=== PATIENT | male | born 1980 | race Caucasian/White ===

== ENCOUNTER → 2017-06-09 | Outpatient (CLI) | payer OTHER ==
--- NOTE | 2017-06-09 10:38 | DIAGNOSTIC IMAGING REPORT ---
(CHEST) THORAX WITHOUT CT DOSE: 304.54 mGycm HISTORY: Pulmonary nodule F/U TO KNOWN PULMONARY NODULE TECHNIQUE: Multiaxial CT images of the chest were performed without contrast. A dose lowering technique was utilized adhering to the principles of ALARA. COMPARISON: CT abdomen dated 04/22/2016 FINDINGS: Small 5 mm basilar pleural nodules at the posterior costophrenic angles are noted and appear unchanged compared to the prior study. A 3 mm nodules also noted in the left base laterally. All findings were present on the prior study and are stable. Lungs otherwise appear clear. There is no infiltrate or additional pulmonary nodularity. Mediastinal and hilar regions show no significant adenopathy. Limited evaluation the upper abdomen is unremarkable. IMPRESSION: 1. Stable basilar micronodularity. 2. No change from the prior exam as discussed above. 3. Although the findings are of extremely low suspicion statistically, a repeat CT study in 1-2 years is suggested The above report was generated using voice recognition software. It may contain grammatical, syntax or spelling errors. Electronically signed by: Asad Villafuerte M.D. 06/09/2017 10:36 AM Dictated Date/Time: 06/09/2017 10:32 AM
== END | disposition home or self-care (01) ==
LOC: C.CTS 10:13
DX: R91.8 Other nonspecific abnormal finding of lung field (principal)

== ENCOUNTER 2025-04-11 18:19 | Inpatient (IN) ==
[2025-04-11 18:42] LABS: Hematocrit (blood only) 33.3 % (42.0-52.0); Hemoglobin 9.9 g/dl (14.0-18.0); Immature Granulocytes # (auto) 0.02 K/uL (0.01-0.20); Immature Granulocytes % (auto) 0.2 %; Mean Corpuscular Hemoglobin 24.6 pg (25.0-34.0); Mean Corpuscular Volume 82.8 fL (80.0-100.0); Platelet Count 341 K/uL (130-400); RDW Standard Deviation 46.6 fL (36.4-46.3); Red Blood Count 4.02 M/uL (4.70-6.10); White Blood Count 8.45 K/ul (4.8-10.8)
[2025-04-11] MEDS: SODIUM CHLORIDE 0.9% 1,000 ML IV ONE (18:46)
--- NOTE | 2025-04-11 18:53 | Emergency Department Note ---
Impression & Plan SVT (supraventricular tachycardia), Anemia, Hypomagnesemia, Abnormal CT of the abdomen, Pneumonia ED Provider Note NAME: REJI WAY AGE: 45 SEX: M : 1980 ARRIVES VIA: Ambulance INFORMANT: Patient, ED PROVIDER(S): Alfred Mercer DO CHIEF COMPLAINT: Tachycardia HPI: The patient is a 45-year-old male who presented to the emergency department for an evaluation of tachycardia. The patient is currently at [facility]. He is scheduled to be transferred tomorrow for inpatient alcohol rehabilitation. The patient states he has a history of SVT. He noticed throughout the day he was having problems with palpitations. He was broke once with carotid maneuver and then with adenosine. The patient had ongoing symptoms today and was sent to the emergency department for further evaluation. He denies having any chest pain. He denies having any shortness of breath. He states has been compliant with his outpatient medications which does include an anticoagulant. He denies having any leg pain or increasing calf pain. ROS: See above HPI for pertinent positives & negatives. A total of 10 systems reviewed and were otherwise negative. PAST MEDICAL HISTORY: See Below PAST SURGICAL HISTORY: See Below FAMILY HISTORY: See Below SOCIAL HISTORY: See Below HOME MEDICATIONS: See Below ALLERGIES: See Below VITALS: See Below PHYSICAL EXAMINATION: GENERAL: Patient is awake alert in no acute distress patient is resting comfortably and showing no signs of anxiety EYES: The conjunctivae are clear. The pupils are round and reactive. EARS, NOSE, MOUTH AND THROAT: The nose is without any evidence of any deformity. NECK: The neck is nontender and supple. RESPIRATORY: Normal respiratory effort is noted there is no evidence of wheezing rhonchi or rales CARDIOVASCULAR: Tachycardic and regular heart sounds were noted to auscultation. GASTROINTESTINAL: The abdomen is soft. Abdomen is nontender. MUSCULOSKELETAL/EXTREMITIES: There is no evidence of gross deformity full range of motion is noted in the hips and shoulders. SKIN: There is no obvious evidence of any rash. There are no petechiae, pallor or cyanosis noted. NEUROLOGIC: Patient is awake alert and oriented x3 strength is symmetric patellar reflexes are 2+ bilaterally MEDICAL DECISION MAKING: The patient is a 45-year-old male who presented to the emergency department from inpatient rehab for an evaluation of tachycardia. The patient has a history of cardiomyopathy as well as SVT. The patient also has a history of chronic alcohol use. The patient was recently in our facility and treated for pneumonia as well as superficial thrombophlebitis. He is at upper extremity DVT. The patient was found to be in SVT at the rehab. He was treated prior to arrival but when he broke he still had palpitations. The patient was in sinus tachycardia when he arrived here. I discussed patient's laboratory and radiographic studies with him. He did have an abnormal chest x-ray. Given his history of DVT as well as persistent tachycardia further imaging was obtained in the way of CT angiography of the chest as well as CT of the abdomen and pelvis. He was found to have signs of infiltrate which does appear similar to previous but also masses on his kidneys. I did discuss the patient's condition with the nursing staff at [facility]. At this time they do feel the patient would be a better candidate for inpatient management at our facility rather than coming back to inpatient rehab. I will defer antibiotic as well as blood culture to the admitting team as the pneumonia is more radiographic and not as much clinical as the patient does not have a productive cough or a fever. He was also found to be anemic. Certainly he will require further inpatient workup. Triage Nursing notes reviewed. Prior medical records reviewed Vital Signs: reviewed and remarkable for tachycardia. Differential diagnosis: Premature contractions, electrolyte abnormality, cardiac dysrhythmia, thyroid dysfunction, pulmonary embolism, infection, gastrointestinal, as well as other pathologies. ER treatment provided: See below Diagnostics interpreted by me: ECG: EKG was obtained in the emergency department. My interpretation is sinus tachycardia at 118 bpm. There is no ectopy. Nonspecific ST abnormalities were noted. This was compared to a tracing from April 06, 2025. No changes were noted. Cardiac Monitoring: An order was placed for continuous cardiac monitoring. The monitor shows a rate of 100 bpm with sinus tachycardia. Laboratory studies: As stated above and show below. Imaging studies: See below. Radiographic imaging was reviewed by myself Consultation(s): [facility]. Past Med/Surg History Problem List (Updated 04/11/25 @ 23:03 by Alfred Mercer DO) Pneumonia (Acute) Abnormal CT of the abdomen (Acute) Hypomagnesemia (Acute) Anemia (Acute) SVT (supraventricular tachycardia) (Acute) Tracheostomy in place Anxiety Superficial thrombophlebitis of both upper extremities provoked by vascular c Arm DVT (deep venous thromboembolism), acute Acute non-occlusive Right IJ provoked from catheter 03/19/25 Fever Acute HFrEF (heart failure with reduced ejection fraction) Ischemic hepatitis ETOH abuse Cardiomyopathy Acute hypoxic respiratory failure (Acute) Thrombocytopenia Elevated LFTs Pulmonary edema Required emergent intubation Respiratory failure Crohn's disease involving terminal ileum Encounter for pre-operative examination Hematochezia Change in bowel habits Chronic diarrhea Medical History Blood in stool reason for upcoming colonoscopy (bright red blood) Surgical History History of myringotomy BMT History of tonsillectomy History of colonoscopy Family History Other No family history of adverse response to anesthesia Social History Smoking Status: Never smoker Second Hand Exposure: No; Do You Dip or Chew Tobacco: No; Hx Alcohol Use: Yes Hx Substance Use: No Preferred Language: Nigerien Communication Ability: Impaired Vp [employer] Required: No Beliefs That Will Affect Care: None Current Living Situation: Spouse Feels Safe at Home: Yes Assistive Devices: None Allergies Allergies Allergy/AdvReac Type Severity Reaction Status Date / Time gluten Allergy Severe Anaphylaxis Verified 04/11/25 21:48 peanut Allergy Severe Anaphylaxis Verified 04/11/25 21:48 peanut oil Allergy Severe ANAPHYLAXIS Verified 04/11/25 21:48 lidocaine [From Xylocaine] Allergy Unknown Unknown Verified 04/11/25 21:48 Home Meds Home Medications Medication Instructions Recorded Confirmed acetaminophen 325 mg tablet 650 mg PO Q4H PRN Pain (Scale 04/11/25 04/11/25 (Tylenol) Score 1-3) acetaminophen 500 mg tablet 500 mg PO Q4H PRN TEMP =>100.5 04/11/25 04/11/25 bisacodyl 10 mg rectal suppository 10 mg WY DAILY PRN Constipation 04/11/25 04/11/25 docusate sodium 100 mg capsule 100 mg PO Q12H PRN Constipation 04/11/25 04/11/25 gabapentin 800 mg tablet 800 mg PO TID 04/11/25 04/11/25 lisinopril 2.5 mg tablet 2.5 mg PO DAILY 04/11/25 04/11/25 metoprolol succinate 50 mg 50 mg PO DAILY 04/11/25 04/11/25 tablet,extended release 24 hr ondansetron 4 mg disintegrating 4 mg PO Q6H PRN NAUSEA/VOMITING 04/11/25 04/11/25 tablet polyethylene glycol 3350 17 17 g PO QDL PRN Constipation 04/11/25 04/11/25 gram/dose oral powder (Miralax) sennosides 8.6 mg tablet (Senokot) 8.6 mg PO QDL PRN Constipation 04/11/25 04/11/25 sodium phosphates 19 gram-7 133 ml WY DAILY PRN Constipation 04/11/25 04/11/25 gram/118 mL enema (Fleet Enema) thiamine HCl (vitamin B1) 100 mg 100 mg PO DAILY 04/11/25 04/11/25 tablet Previous Rx's Medication Instructions Recorded apixaban 5 mg tablet (Eliquis) 5 mg PO BID 30 days #60 tabs 04/07/25 folic acid 1 mg tablet 1 mg PO DAILY #30 tabs 04/07/25 melatonin 3 mg tablet 3 mg PO HS #30 tabs 04/07/25 multivitamin with folic acid 400 1 tab PO QAM #30 tabs 04/07/25 mcg tablet (Daily-Meseret (with folic acid)) olanzapine 10 mg tablet 10 mg PO HS #30 tabs 04/07/25 olanzapine 5 mg tablet 5 mg PO QAM #30 tabs 04/07/25 spironolactone 25 mg tablet 25 mg PO QAM 30 days #30 tabs 04/07/25 Results & Data (ED) Vital Signs Vital Signs - 24 hr 04/11/25 18:30 04/11/25 18:30 04/11/25 19:05 Temperature 36.8 C Temperature Source Oral Pulse Rate 114 H 111 H Pulse Rate from SpO2 Sensor Respiratory Rate 16 Blood Pressure 123/84 Blood Pressure Mean 97 Pulse Oximetry 100 100 Oxygen Delivery Method Room Air Room Air Sepsis Recent Fever Within 48 Hours No Sepsis New/Unexplained Change in Mental Status N/A Sepsis Action Taken by Nursing No Action Required 04/11/25 19:30 04/11/25 20:09 04/11/25 20:30 Temperature Temperature Source Pulse Rate 106 H 101 H 102 H Pulse Rate from SpO2 Sensor 106 H 100 H 101 H Respiratory Rate 15 22 20 Blood Pressure 119/86 117/80 119/76 Blood Pressure Mean 97 92 90 Pulse Oximetry 100 98 96 Oxygen Delivery Method Room Air Room Air Room Air Sepsis Recent Fever Within 48 Hours Sepsis New/Unexplained Change in Mental Status Sepsis Action Taken by Nursing 04/11/25 20:30 04/11/25 20:51 04/11/25 21:00 Temperature Temperature Source Pulse Rate 99 H Pulse Rate from SpO2 Sensor 100 H Respiratory Rate 17 Blood Pressure 119/76 115/80 Blood Pressure Mean 85 92 Pulse Oximetry 98 Oxygen Delivery Method Room Air Sepsis Recent Fever Within 48 Hours Sepsis New/Unexplained Change in Mental Status Sepsis Action Taken by Nursing 04/11/25 21:03 04/11/25 21:42 04/11/25 22:00 Temperature Temperature Source Pulse Rate 99 H 105 H 99 H Pulse Rate from SpO2 Sensor 199 H 98 H Respiratory Rate 14 22 23 Blood Pressure 105/74 120/87 Blood Pressure Mean 84 98 Pulse Oximetry 95 98 Oxygen Delivery Method Room Air Room Air Sepsis Recent Fever Within 48 Hours Sepsis New/Unexplained Change in Mental Status Sepsis Action Taken by Nursing 04/11/25 22:24 04/11/25 22:53 04/11/25 23:00 Temperature Temperature Source Pulse Rate 101 H 102 H 100 H Pulse Rate from SpO2 Sensor 102 H 100 H Respiratory Rate 24 24 Blood Pressure 127/101 H 121/80 Blood Pressure Mean 109 93 Pulse Oximetry 99 97 Oxygen Delivery Method Room Air Room Air Sepsis Recent Fever Within 48 Hours Sepsis New/Unexplained Change in Mental Status Sepsis Action Taken by Nursing 04/11/25 23:00 Temperature Temperature Source Pulse Rate Pulse Rate from SpO2 Sensor Respiratory Rate Blood Pressure 121/80 Blood Pressure Mean 93 Pulse Oximetry Oxygen Delivery Method Sepsis Recent Fever Within 48 Hours Sepsis New/Unexplained Change in Mental Status Sepsis Action Taken by Prison Medications Current Medication List: was personally reviewed by me Laboratory Data Attestation: I reviewed the patient's lab results. 04/11/25 18:28 04/11/25 18:28 Lab Results 04/11/25 Range/Units 18:28 WBC 8.45 (4.8-10.8) K/ul RBC 4.02 L (4.70-6.10) M/uL Hgb 9.9 L (14.0-18.0) g/dl Hct 33.3 L (42.0-52.0) % MCV 82.8 (80.0-100.0) fL MCH 24.6 L (25.0-34.0) pg MCHC 29.7 L (32.0-36.0) g/dL RDW Std Deviation 46.6 H (36.4-46.3) fL RDW Coeff of Iris 15.5 H (11.5-14.5) % Plt Count 341 (130-400) K/uL MPV 9.1 L (9.4-12.4) fL Immature Gran % (Auto) 0.2 % Neut % (Auto) 75.5 % Lymph % (Auto) 15.6 % Norton % (Auto) 7.1 % Eos % (Auto) 0.5 % Baso % (Auto) 1.1 % Neut # (Auto) 6.38 (1.40-6.50) K/uL Lymph # (Auto) 1.32 (1.20-3.40) K/uL Norton # (Auto) 0.60 H (0.11-0.59) K/uL Eos # (Auto) 0.04 (0.00-0.50) K/uL Baso # (Auto) 0.09 (0.00-0.20) K/uL Immature Gran # (Auto) 0.02 (0.01-0.20) K/uL PT 13.4 H (9.0-12.0) Seconds INR 1.3 H (0.9-1.1) APTT 24 (21-31) Seconds PTT Ratio 0.9 D-Dimer 4240 H* (0-500) ug/L FEU Sodium 132 L (136-145) mmol/L Potassium 4.5 (3.5-5.1) mmol/L Chloride 100 (98-107) mmol/L Carbon Dioxide 24 (21-32) mmol/L Anion Gap 8 (3-11) BUN 14 (6-23) mg/dl Creatinine 0.78 (0.6-1.4) mg/dl Est Cr Clr Drug Dosing Not Reportable eGFR 111.38 BUN/Creatinine Ratio 17.9 (10-20) Glucose 122 H (70-99(Fasting)) mg/dl Calcium 8.8 (8.6-10.3) mg/dl Magnesium 1.5 L (1.7-2.4) mg/dl Total Bilirubin 0.8 (0.2-1.0) mg/dl AST 52 H (13-39) U/L ALT 51 (7-52) U/L Alkaline Phosphatase 116 H (34-104) U/L Troponin I High Sens 13.2 (0-20) pg/ml Total Protein 7.4 (6.0-8.3) gm/dl Albumin 3.1 L (3.4-5.0) gm/dl Globulin 4.3 H (2.5-4.0) gm/dl Albumin/Globulin Ratio 0.7 L (0.9-2) TSH 0.327 (0.300-4.500) uIu/ml Administered Medications Discontinued Medications Sodium Chloride (Nss) 1,000 mls @ 999 mls/hr IV .Q1H1M ONE Stop: 04/11/25 19:41 Last Infusion: 04/11/25 20:00 Dose: Infused Documented By: Admin: 04/11/25 18:46 Dose: 999 mls/hr Documented By: PROSPER Magnesium Sulfate/Dextrose (Magnesium Sulfate / D5w) 1 gm in 100 mls @ 100 mls/hr IV NOW STA Stop: 04/11/25 20:52 Last Infusion: 04/11/25 21:09 Dose: Infused Documented By: Admin: 04/11/25 20:01 Dose: 100 mls/hr Documented By: ISRRAEL Ioversol (Optiray 320 125ml) 115 ml IV ONCE ONE Stop: 04/11/25 21:23 Last Admin: 04/11/25 21:22 Dose: 115 ml Documented By: ALEXUS Ketorolac Tromethamine (Ketorolac Tromethamine 15 Mg/Ml Vial) 10 mg IV NOW ONE Stop: 04/11/25 20:51 Last Admin: 04/11/25 23:02 Dose: Not Given Documented By: PONCHO Lorazepam (Lorazepam 1 Mg/1 Ml Syr Ed Inj Use) 0.5 mg IV ONE STA Stop: 04/11/25 21:09 Last Admin: 04/11/25 21:14 Dose: 0.5 mg Documented By: EZEQUIEL Co-signed By: PONCHO Magnesium Oxide (Magnesium Oxide 400 Mg Tab) 400 mg PO ONE ONE Stop: 04/11/25 19:55 Last Admin: 04/11/25 20:01 Dose: 400 mg Documented By: Imaging Data Attestation: I personally reviewed and interpreted this imaging study as follows: My Impression: 1 view chest x-ray was obtained in the emergency department. My interpretation is increased consolidation noted in the right lung field. There is no free air, final report below. Radiologist's Impression: Chest X-Ray 04/11/25 18:27 EXAM: X-ray chest one-view portable CLINICAL HISTORY: Dysrhythmia, pain left-sided chest PRIORS: X-ray 04/05/2025, CT 03/23/2025 TECHNIQUE: Frontal view chest FINDINGS: Overall improvement in the appearance of the lung parenchyma is noted, especially when compared to CT scan. A moderate left pleural effusion is noted, enlarged when compared to 04/05/2025 chest radiograph. Persistent or increased patchy opacifications noted at the left lung base. Pleural appearing mass noted in the right mid hemithorax, lateral aspect measuring 2.7 x 2.7 cm, also identified on CT scan. So smooth borders and is approximately round to oval in shape. Cardiomegaly, unchanged. Trachea midline. IMPRESSION: Moderate left pleural effusion, progressed in the interval. Increased opacity in the left lower lobe which could suggest atelectasis or pneumonia. Overall improvement in the appearance of the lungs when compared to chest CT from 03/23/2025 with persistent right lung or pleural-based mass, present laterally measuring up to 2.7 cm. Follow-up chest CT could be considered if appropriate. Cardiomegaly ACT 112: Positive. There are findings on this examination that require communication between the performing entity and the patient following Patient Test Result Information Act ([place] ACT 112) guidelines. Electronically signed by Claudine Hammond 04-11-2025 7:39 PM Abdomen/Pelvis CT 04/11/25 20:49 Exam(s): CT ABDOMEN + PELVIS With Contrast IV Amt: 115 ml optiray 320 EXAM: CT Abdomen and Pelvis With Intravenous Contrast CLINICAL HISTORY: Reason for exam: right sided pain. TECHNIQUE: Axial computed tomography images of the abdomen and pelvis with intravenous contrast. CTDI is 26.12 mGy and DLP is 1381.73 mGy-cm. Automated exposure control was utilized for the study. A dose lowering technique was utilized adhering to the principles of ALARA. CONTRAST: Patient received 115 ml optiray 320 of IV contrast COMPARISON: No relevant prior studies available. FINDINGS: Lung bases: Reported separately. ABDOMEN: Liver: Unremarkable. No mass. Gallbladder and bile ducts: Unremarkable. No calcified stones. No ductal dilation. Pancreas: Unremarkable. No mass. No ductal dilation. Spleen: Unremarkable. No splenomegaly. Adrenals: Unremarkable. No mass. Kidneys and ureters: No hydronephrosis. Indeterminate 11 mm exophytic right renal lesion measuring 36 Hounsfield units (axial 143). Complex cystic 3.1 cm mass left kidney midpole with central soft tissue density component (axial 138). Stomach and bowel: Sigmoid diverticulosis without diverticulitis. No bowel obstruction. PELVIS: Appendix: Normal appendix. Bladder: Unremarkable. No mass. Reproductive: Unremarkable as visualized. ABDOMEN and PELVIS: Intraperitoneal space: Trace free pelvic fluid. No free air. Bones/joints: No acute fracture. No dislocation. Soft tissues: Unremarkable. Vasculature: Unremarkable. No abdominal aortic aneurysm. Lymph nodes: Unremarkable. No enlarged lymph nodes. IMPRESSION: 1. Trace free pelvic fluid. 2. Indeterminate bilateral renal lesions, largest in the left kidney measuring 3.1 cm. Further imaging workup with renal ultrasound correlation and possibly renal mass protocol CT or MRI. Electronically signed by: Fiorella Soto M.D. 04/11/25 22:48 PM Chest CTA 04/11/25 20:49 Exam(s): CTA CHEST IV Amt: 115 ml optiray 320 EXAM: CT Angiography Chest With Intravenous Contrast CLINICAL HISTORY: Reason for exam: PE. TECHNIQUE: Axial computed tomographic angiography images of the chest with intravenous contrast. CTDI is 20 mGy and DLP is 13 80 mGy-cm. Automated exposure control was utilized for the study. A dose lowering technique was utilized adhering to the principles of ALARA. MIP reconstructed images were created and reviewed. COMPARISON: 03/23/2025 FINDINGS: Pulmonary arteries: No evidence of acute pulmonary embolism. Aorta: No thoracic aortic aneurysm. Lungs: Patchy bilateral irregular ground-glass opacities as well as small peripheral consolidations. Pleural space: Small partially loculated left pleural effusion and trace right pleural effusion. No pneumothorax. Heart: Cardiomegaly. No pericardial effusion or coronary artery atherosclerosis. Bones/joints: No acute fracture. No dislocation. Soft tissues: Unremarkable. Lymph nodes: No lymphadenopathy by size criteria. IMPRESSION: 1. No evidence of acute pulmonary embolism. 2. Patchy bilateral irregular ground-glass opacities as well as small peripheral consolidations. Appearance is concerning for viral/atypical infection. Degree of parenchymal lung abnormality is improved from prior. 3. Cardiomegaly. 4. Small partially loculated left pleural effusion and trace right pleural effusion. Electronically signed by: Fiorella Soto M.D. 04/11/25 22:47 PM Discharge Plan Visit Data Chief Complaint: Tachycardia Stated Complaint: SVT ED Provider: Alfred Mercer Discharge Problem: SVT (supraventricular tachycardia), Anemia, Hypomagnesemia, Abnormal CT of the abdomen, Pneumonia Patient Disposition: Being Evaluated by Hospitalist Condition: Fair Forms Stand Alone Forms: [facility] Prescriptions Prescriptions: No Action ondansetron 4 mg tablet,disintegrating 4 mg PO Q6H PRN (Reason: NAUSEA/VOMITING) docusate sodium 100 mg capsule 100 mg PO Q12H PRN (Reason: Constipation) bisacodyl 10 mg suppository 10 mg WY DAILY PRN (Reason: Constipation) Fleet Enema 19-7 gram/118 mL enema 133 ml WY DAILY PRN (Reason: Constipation) sennosides [Senokot] 8.6 mg tablet 8.6 mg PO QDL PRN (Reason: Constipation) polyethylene glycol 3350 [Miralax] 17 gram/dose powder 17 g PO QDL PRN (Reason: Constipation) acetaminophen 500 mg tablet 500 mg PO Q4H PRN (Reason: TEMP =>100.5) metoprolol succinate 50 mg tablet extended release 24 hr 50 mg PO DAILY thiamine HCl (vitamin B1) 100 mg tablet 100 mg PO DAILY lisinopril 2.5 mg tablet 2.5 mg PO DAILY olanzapine 5 mg Tablet 5 mg PO QAM Qty: 30 0RF olanzapine 10 mg Tablet 10 mg PO HS Qty: 30 0RF melatonin 3 mg Tablet 3 mg PO HS Qty: 30 0RF spironolactone 25 mg Tablet 25 mg PO QAM 30 Days Qty: 30 0RF folic acid 1 mg Tablet 1 mg PO DAILY Qty: 30 0RF multivitamin with folic acid [Daily-Meseret (with folic acid)] 400 mcg Tablet 1 tab PO QAM Qty: 30 0RF Eliquis 5 mg Tablet 5 mg PO BID 30 Days Qty: 60 0RF acetaminophen [Tylenol] 325 mg Tablet 650 mg PO Q4H PRN (Reason: Pain (Scale Score 1-3)) gabapentin 800 mg Tablet 800 mg PO TID Referrals Referrals: Yemi Garcia Jr, DO [Primary Care Provider] -
[2025-04-11 18:56] LABS: Alanine Aminotransferase 51 U/L (7-52); Albumin Globulin Ratio 0.7 (0.9-2); Albumin Level 3.1 gm/dl (3.4-5.0); Alkaline Phosphatase 116 U/L (34-104); Anion Gap 8 (3-11); Bilirubin,Total 0.8 mg/dl (0.2-1.0); Blood Urea Nitrogen 14 mg/dl (6-23); Calcium 8.8 mg/dl (8.6-10.3); Carbon Dioxide 24 mmol/L (21-32); Chloride 100 mmol/L (98-107); Globulin 4.3 gm/dl (2.5-4.0); Glucose 122 mg/dl (70-99(Fasting)); Magnesium 1.5 mg/dl (1.7-2.4); Potassium 4.5 mmol/L (3.5-5.1); Sodium 132 mmol/L (136-145); Total Protein 7.4 gm/dl (6.0-8.3)
[2025-04-11 19:12] LABS: Thyroid Stimulating Hormone 0.327 uIu/ml (0.300-4.500)
[2025-04-11 19:14] LABS: INR 1.3 (0.9-1.1); Partial Thromboplastin Time 24 Seconds (21-31); Prothrombin Time 13.4 Seconds (9.0-12.0)
--- NOTE | 2025-04-11 19:40 | XRay Report ---
EXAM: X-ray chest one-view portable CLINICAL HISTORY: Dysrhythmia, pain left-sided chest PRIORS: X-ray 04/05/2025, CT 03/23/2025 TECHNIQUE: Frontal view chest FINDINGS: Overall improvement in the appearance of the lung parenchyma is noted, especially when compared to CT scan. A moderate left pleural effusion is noted, enlarged when compared to 04/05/2025 chest radiograph. Persistent or increased patchy opacifications noted at the left lung base. Pleural appearing mass noted in the right mid hemithorax, lateral aspect measuring 2.7 x 2.7 cm, also identified on CT scan. So smooth borders and is approximately round to oval in shape. Cardiomegaly, unchanged. Trachea midline. IMPRESSION: Moderate left pleural effusion, progressed in the interval. Increased opacity in the left lower lobe which could suggest atelectasis or pneumonia. Overall improvement in the appearance of the lungs when compared to chest CT from 03/23/2025 with persistent right lung or pleural-based mass, present laterally measuring up to 2.7 cm. Follow-up chest CT could be considered if appropriate. Cardiomegaly ACT 112: Positive. There are findings on this examination that require communication between the performing entity and the patient following Patient Test Result Information Act ([place] ACT 112) guidelines. Electronically signed by Claudine Hammond 04-11-2025 7:39 PM
[2025-04-11] MEDS: MAGNESIUM SULFATE / D5W 1 GM/100 ML BAG IV STA (20:01)
[2025-04-11] MEDS: MAGNESIUM OXIDE 400 MG TAB PO ONE (20:01)
[2025-04-11] MEDS: LORazepam 1 MG/1 ML SYR ED Inj Use IV STA (21:14)
[2025-04-11] MEDS: OPTIRAY 320 125ml IV ONE (21:22)
--- NOTE | 2025-04-11 22:48 | CT Scan Report ---
Exam(s): CTA CHEST IV Amt: 115 ml optiray 320 EXAM: CT Angiography Chest With Intravenous Contrast CLINICAL HISTORY: Reason for exam: PE. TECHNIQUE: Axial computed tomographic angiography images of the chest with intravenous contrast. CTDI is 20 mGy and DLP is 13 80 mGy-cm. Automated exposure control was utilized for the study. A dose lowering technique was utilized adhering to the principles of ALARA. MIP reconstructed images were created and reviewed. COMPARISON: 03/23/2025 FINDINGS: Pulmonary arteries: No evidence of acute pulmonary embolism. Aorta: No thoracic aortic aneurysm. Lungs: Patchy bilateral irregular ground-glass opacities as well as small peripheral consolidations. Pleural space: Small partially loculated left pleural effusion and trace right pleural effusion. No pneumothorax. Heart: Cardiomegaly. No pericardial effusion or coronary artery atherosclerosis. Bones/joints: No acute fracture. No dislocation. Soft tissues: Unremarkable. Lymph nodes: No lymphadenopathy by size criteria. IMPRESSION: 1. No evidence of acute pulmonary embolism. 2. Patchy bilateral irregular ground-glass opacities as well as small peripheral consolidations. Appearance is concerning for viral/atypical infection. Degree of parenchymal lung abnormality is improved from prior. 3. Cardiomegaly. 4. Small partially loculated left pleural effusion and trace right pleural effusion. Electronically signed by: Fiorella Soto M.D. 04/11/25 22:47 PM
--- NOTE | 2025-04-11 22:49 | CT Scan Report ---
Exam(s): CT ABDOMEN + PELVIS With Contrast IV Amt: 115 ml optiray 320 EXAM: CT Abdomen and Pelvis With Intravenous Contrast CLINICAL HISTORY: Reason for exam: right sided pain. TECHNIQUE: Axial computed tomography images of the abdomen and pelvis with intravenous contrast. CTDI is 26.12 mGy and DLP is 1381.73 mGy-cm. Automated exposure control was utilized for the study. A dose lowering technique was utilized adhering to the principles of ALARA. CONTRAST: Patient received 115 ml optiray 320 of IV contrast COMPARISON: No relevant prior studies available. FINDINGS: Lung bases: Reported separately. ABDOMEN: Liver: Unremarkable. No mass. Gallbladder and bile ducts: Unremarkable. No calcified stones. No ductal dilation. Pancreas: Unremarkable. No mass. No ductal dilation. Spleen: Unremarkable. No splenomegaly. Adrenals: Unremarkable. No mass. Kidneys and ureters: No hydronephrosis. Indeterminate 11 mm exophytic right renal lesion measuring 36 Hounsfield units (axial 143). Complex cystic 3.1 cm mass left kidney midpole with central soft tissue density component (axial 138). Stomach and bowel: Sigmoid diverticulosis without diverticulitis. No bowel obstruction. PELVIS: Appendix: Normal appendix. Bladder: Unremarkable. No mass. Reproductive: Unremarkable as visualized. ABDOMEN and PELVIS: Intraperitoneal space: Trace free pelvic fluid. No free air. Bones/joints: No acute fracture. No dislocation. Soft tissues: Unremarkable. Vasculature: Unremarkable. No abdominal aortic aneurysm. Lymph nodes: Unremarkable. No enlarged lymph nodes. IMPRESSION: 1. Trace free pelvic fluid. 2. Indeterminate bilateral renal lesions, largest in the left kidney measuring 3.1 cm. Further imaging workup with renal ultrasound correlation and possibly renal mass protocol CT or MRI. Electronically signed by: Fiorella Soto M.D. 04/11/25 22:48 PM
[2025-04-11] MEDS: KETOROLAC TROMETHAMINE 15 MG/ML VIAL IV ONE (23:02)
--- NOTE | 2025-04-11 23:38 | History & Physical Report ---
Date of Service April 11, 2025 Assessment & Plan (1) SVT (supraventricular tachycardia): (2) Loculated pleural effusion: (3) Hypomagnesemia: (4) Hyponatremia: (5) Bilateral renal masses: Plan 45-year-old male PMHx SVT, thrombophlebitis, prior DVT of arm, HFrEF, ischemic hepatitis, cardiomyopathy, prior acute hypoxia respiratory failure requiring intubation, thrombocytopenia, Crohn's disease, and diarrhea presenting from [facility] for reports of SVT on the day of arrival. Pt was provided with Adenosine IV x 2 and converted to NSR. Evaluation reveals anemia, elevated Ddimer, and normal tropinin. Liver enzymes slightly elevated. Mag was low, replaced in ED. CXR with pleural effusion and ? atelectasis vs PNA. His CTA chest is negative for PE, does show patchy bilateral irregular opacities, ? infection, as well as pleural effusions. Admission for further evaluation. #Tachycardia/SVT Reports of SVT at HF visit then at [facility] the day of arrival, received adenosine x 2 now in sinus, carotid massage had initially failed. W/ h/o HFrEF, on GDMT. Asx at time of admission. ? related to hypomagnesemia, ? physiological stress from pleural effusion. Will admit + monitor on tele for recurrence of SVT. - Trop 13.2 - EKG initially SVT @ 158 bpm on arrival - monitor on tele - Attempt carotid massage with onset of SVT -- notify provider with onset of such - Maximize electrolytes -- replace Mag - Echo 04/07/2025 with EF 20-25% - Cardiology consulted - appreciate input + recs #L loculated pleural effusion/Bilateral pleural effusions No hypoxic, and without symptoms at present. With prior bilateral thoracentesis (no infection, transudative to borderline exudative, cultures all negative). CXR 04/01 and 04/05 with R > L pleural effusions but improved. No F/C, cough, congestion, or SOB. - CBC without leukocytosis/leukopenia, pending procal + BNP - CBC am - CXR mild L pleural effusion (progressed), increased opacity LLL (atelectasis vs PNA, increased L side since 04/05/2025 CXR), cardiomegaly - Chest CTA no PE, patchy bilat irregular ground glass opacities (viral vs atypical infection), cardiomegaly, small partially loculated L pleural effusion, trace R pleural effusion - Echo 04/07/2025 EF 20-25%, LV mod dilated, LVSP severely reduced, severe global hypokinesis of LV - HOLD Eliquis, ? procedure - Deferred abx at time of admissions - No cough, SOB, or F/C. WBC WNL. Pending procal - Pulm consulted -- appreciate input + recs #Hypomagnesemia/Hyponatremia Prior history of hypomagnesemia, with chronic diarrhea. Received 1L NSS, 1g mag sulfate in ED. - Na 132 (corrected 133); Mg 1.5 - Defer further fluids at time of admission - Mag sulfate 3g IV x 1 -- will likely need oral supplementation as a daily medication moving forward - Trend BMP + Mg am #Bilateral renal lesions As identified on CTAP, also had been documented 03/15/2025 (CTAP) and 06/09/2018 (renal US). - Cr 0.78, BUN 14 - trend BMP as appropriate - CTAP indeterminate bilateral renal lesions (L kidney largest @ 3.1 cm) - Follow up as appropriate #Anemia- Near baseline, no active bleeding reported. Continue folic acid - CBC am #Elevated D-dimer- D-dimer 4240; Chest CTA without PE; Eliquis - HOLD at time of admission, ? pulm procedure #Constipation- Bisacodyl prn, docusate prn, MiraLAX prn, sennosides prn; Reports of chronic diarrhea, will hold off on ordering all prn medications and trial just MiraLAX at this time in attempts to decrease chronic diarrhea - continue MiraLAX prn #Etoh abuse- Last drink 03/11; Complicated now with cardiomyopathy, HF. Folic acid, thiamine - continue #HTN/HFrEF- Lisinopril, metoprolol, spironolactone - continue #Psych- Olanzapine, Gabapentin - continue Dispo: Admit, PCU VTE Prophylaxis: On Eliquis - HOLD at time of admission, pending pulmonology inp ut of loculated pleural effusion This document was dictated utilizing Ecell[employer] Carson. Please excuse any grammatical errors that may be secondary to use of this software. Admission and Anticipated Discharge Date Admission Date: 04/01/2025 History of Present Illness Chief Complaint: Tachycardia Primary Care Provider: Yemi Garcia Jr, DO 45-year-old male PMHx SVT, thrombophlebitis, prior DVT of arm, HFrEF, ischemic hepatitis, cardiomyopathy, prior acute hypoxia respiratory failure requiring intubation, thrombocytopenia, Crohn's disease, and diarrhea presenting from [facility] for reports of SVT on the day of arrival. Pt was provided with Adenosine 160mg x 2 and converted to NSR. Patient states that he is "very tired" and states that he was just told that his heart rate was very fast the day of arrival. He complains of some left-sided pain that is "old on my left side" and described as a dull sensation. He states that earlier he felt that his heart was beating funny, but now he is without any symptoms. He denies chest pain, SOB, palpitations, or dizziness. Otherwise without acute symptoms, to states that he is very tired and ready to sleep because it is past his bedtime. He denies any cough, fever or chills, shortness of breath, or URI symptoms. He has no other complaints at present. Requesting Powerade. ED evaluation reveals CBC without leukocytosis, H/H 9.9/33.3; PT/INR 13.4/1.3, Ddimer 4240; CMP Na 132, glucose 122, AST 52, alk phos 116, albumin 3.1, globulin 4.3, ratio 0.7; Mag 1.5; troponin 13.2; TSH 0.327; CXR moderate L pleural effusion (progressed), increased opacity of LLL (atelectasis vs PNA), persistent RL mass, cardiomegaly; CTAP trace free pelvic fluid, indeterminant bilateral renal lesions (largest L @ 3.1 cm); CTA chest no PE, kiersten bilateral irregular ground glass opacities with peripheral consolidations (viral/atypical infection?), cardiomegaly, small partially loculated L pleural effusion, trace R pleural effusion; EKG SVT, LAFB, LVH at 158 bpm.; Provided with 1L NSS, Mag sulfate 1 g IV, mag oxide 400 mg po, and lorazepam 0.5mg IV in ED. Please see Dr. Mendieta's attestation for adjustments/additions to treatment plan. Allergies Allergy/AdvReac Type Severity Reaction Status Date / Time gluten Allergy Severe Anaphylaxis Verified 04/11/25 21:48 peanut Allergy Severe Anaphylaxis Verified 04/11/25 21:48 peanut oil Allergy Severe ANAPHYLAXIS Verified 04/11/25 21:48 lidocaine [From Xylocaine] Allergy Unknown Unknown Verified 04/11/25 21:48 Home Medications Medication Instructions Recorded Confirmed Type apixaban 5 mg tablet (Eliquis) 5 mg PO BID 30 days #60 tabs 04/07/25 04/11/25 Rx folic acid 1 mg tablet 1 mg PO DAILY #30 tabs 04/07/25 04/11/25 Rx melatonin 3 mg tablet 3 mg PO HS #30 tabs 04/07/25 04/11/25 Rx multivitamin with folic acid 400 1 tab PO QAM #30 tabs 04/07/25 04/11/25 Rx mcg tablet (Daily-Meseret (with folic acid)) olanzapine 10 mg tablet 10 mg PO HS #30 tabs 04/07/25 04/11/25 Rx olanzapine 5 mg tablet 5 mg PO QAM #30 tabs 04/07/25 04/11/25 Rx spironolactone 25 mg tablet 25 mg PO QAM 30 days #30 tabs 04/07/25 04/11/25 Rx acetaminophen 325 mg tablet 650 mg PO Q4H PRN Pain (Scale 04/11/25 04/11/25 History (Tylenol) Score 1-3) acetaminophen 500 mg tablet 500 mg PO Q4H PRN TEMP =>100.5 04/11/25 04/11/25 History bisacodyl 10 mg rectal suppository 10 mg MI DAILY PRN Constipation 04/11/25 04/11/25 History docusate sodium 100 mg capsule 100 mg PO Q12H PRN Constipation 04/11/25 04/11/25 History gabapentin 800 mg tablet 800 mg PO TID 04/11/25 04/11/25 History lisinopril 2.5 mg tablet 2.5 mg PO DAILY 04/11/25 04/11/25 History metoprolol succinate 50 mg 50 mg PO DAILY 04/11/25 04/11/25 History tablet,extended release 24 hr ondansetron 4 mg disintegrating 4 mg PO Q6H PRN NAUSEA/VOMITING 04/11/25 04/11/25 History tablet polyethylene glycol 3350 17 17 g PO QDL PRN Constipation 04/11/25 04/11/25 History gram/dose oral powder (Miralax) sennosides 8.6 mg tablet (Senokot) 8.6 mg PO QDL PRN Constipation 04/11/25 04/11/25 History sodium phosphates 19 gram-7 133 ml MI DAILY PRN Constipation 04/11/25 04/11/25 History gram/118 mL enema (Fleet Enema) thiamine HCl (vitamin B1) 100 mg 100 mg PO DAILY 04/11/25 04/11/25 History tablet Past Med/Surg History Problem List (Updated 04/12/25 @ 00:56 by Jonah Rosen PA-C) Hyponatremia Bilateral renal masses Loculated pleural effusion Pneumonia (Acute) Abnormal CT of the abdomen (Acute) Hypomagnesemia (Acute) Anemia (Acute) SVT (supraventricular tachycardia) (Acute) Tracheostomy in place Anxiety Superficial thrombophlebitis of both upper extremities provoked by vascular c Arm DVT (deep venous thromboembolism), acute Acute non-occlusive Right IJ provoked from catheter 03/19/25 Fever Acute HFrEF (heart failure with reduced ejection fraction) Ischemic hepatitis ETOH abuse Cardiomyopathy Acute hypoxic respiratory failure (Acute) Thrombocytopenia Elevated LFTs Pulmonary edema Required emergent intubation Respiratory failure Crohn's disease involving terminal ileum Encounter for pre-operative examination Hematochezia Change in bowel habits Chronic diarrhea Medical History Blood in stool reason for upcoming colonoscopy (bright red blood) Surgical History History of myringotomy BMT History of tonsillectomy History of colonoscopy Family History Other No family history of adverse response to anesthesia Social History Smoking Status: Never smoker Second Hand Exposure: No; Do You Dip or Chew Tobacco: No; Hx Alcohol Use: Yes Hx Substance Use: No Preferred Language: Czech Communication Ability: Impaired Data Integration Analyst Required: No Beliefs That Will Affect Care: None Current Living Situation: Spouse Feels Safe at Home: Yes Assistive Devices: None Review of Systems Review of Systems: All systems reviewed & are unremarkable except as noted in Subjective Physical Exam Physical Exam: General: No acute distress, falling asleep during admitting exam "very tired" Skin: Warm and dry Head: Normocephalic, atraumatic Eyes: PERRL, conjunctivae clear, sclera non-icteric ENT: External ear and ear canal without swelling; nose atraumatic; good dentition, tongue normal appearance, pharynx normal Neck: Supple, no LAD Cardio: borderline tachycardic in high 90s, regular rhythm, no M/G/R, S1 and S2 normal Resp: Slightly decreased breath sounds; No respiratory distress, Lungs CTA in all lobes bilaterally, no wheezes, rales, or rhonchi Abdomen: Soft, symmetric, nontender; No masses or hepatosplenomegaly; Bowel sounds normoactive MSK: No deformities; pulses palpable and equal; no edema. Neuro: Awake, alert; Sensation intact bilaterally; CN grossly intact Psych: Appropriate mood and affect; good judgement and insight. Results & Data Results & Data Vital Signs (Past 12 Hours) Vital Signs Temp Pulse Resp BP Pulse Ox O2 Del Method 04/11/25 23:00 121/80 04/11/25 23:00 100 H 24 121/80 97 Room Air 04/11/25 22:53 102 H 04/11/25 22:24 101 H 24 127/101 H 99 Room Air 04/11/25 22:00 99 H 23 120/87 98 Room Air 04/11/25 21:42 105 H 22 105/74 95 Room Air 04/11/25 21:03 99 H 14 04/11/25 21:00 115/80 04/11/25 20:51 99 H 17 98 Room Air 04/11/25 20:30 119/76 04/11/25 20:30 102 H 20 119/76 96 Room Air 04/11/25 20:09 101 H 22 117/80 98 Room Air 04/11/25 19:30 106 H 15 119/86 100 Room Air 04/11/25 19:05 111 H 04/11/25 18:30 100 Room Air 04/11/25 18:30 36.8 C 114 H 16 123/84 100 Room Air Laboratory Results 04/11/25 18:28 WBC 8.45 RBC 4.02 L Hgb 9.9 L Hct 33.3 L MCV 82.8 MCH 24.6 L MCHC 29.7 L RDW Std Deviation 46.6 H RDW Coeff of Iris 15.5 H Plt Count 341 MPV 9.1 L Immature Gran % (Auto) 0.2 Neut % (Auto) 75.5 Lymph % (Auto) 15.6 [place] % (Auto) 7.1 Eos % (Auto) 0.5 Baso % (Auto) 1.1 Neut # (Auto) 6.38 Lymph # (Auto) 1.32 [place] # (Auto) 0.60 H Eos # (Auto) 0.04 Baso # (Auto) 0.09 Immature Gran # (Auto) 0.02 PT 13.4 H INR 1.3 H APTT 24 PTT Ratio 0.9 D-Dimer 4240 H* Sodium 132 L Potassium 4.5 Chloride 100 Carbon Dioxide 24 Anion Gap 8 BUN 14 Creatinine 0.78 Est Cr Clr Drug Dosing Not Reportable eGFR 111.38 BUN/Creatinine Ratio 17.9 Glucose 122 H Calcium 8.8 Magnesium 1.5 L Total Bilirubin 0.8 AST 52 H ALT 51 Alkaline Phosphatase 116 H Troponin I High Sens 13.2 Total Protein 7.4 Albumin 3.1 L Globulin 4.3 H Albumin/Globulin Ratio 0.7 L TSH 0.327 Diagnostic Findings Chest X-Ray 04/11/25 18:27 EXAM: X-ray chest one-view portable CLINICAL HISTORY: Dysrhythmia, pain left-sided chest PRIORS: X-ray 04/05/2025, CT 03/23/2025 TECHNIQUE: Frontal view chest FINDINGS: Overall improvement in the appearance of the lung parenchyma is noted, especially when compared to CT scan. A moderate left pleural effusion is noted, enlarged when compared to 04/05/2025 chest radiograph. Persistent or increased patchy opacifications noted at the left lung base. Pleural appearing mass noted in the right mid hemithorax, lateral aspect measuring 2.7 x 2.7 cm, also identified on CT scan. So smooth borders and is approximately round to oval in shape. Cardiomegaly, unchanged. Trachea midline. IMPRESSION: Moderate left pleural effusion, progressed in the interval. Increased opacity in the left lower lobe which could suggest atelectasis or pneumonia. Overall improvement in the appearance of the lungs when compared to chest CT from 03/23/2025 with persistent right lung or pleural-based mass, present laterally measuring up to 2.7 cm. Follow-up chest CT could be considered if appropriate. Cardiomegaly ACT 112: Positive. There are findings on this examination that require communication between the performing entity and the patient following Patient Test Result Information Act ([place] ACT 112) guidelines. Electronically signed by Claudine Hammond 04-11-2025 7:39 PM Abdomen/Pelvis CT 04/11/25 20:49 Exam(s): CT ABDOMEN + PELVIS With Contrast IV Amt: 115 ml optiray 320 EXAM: CT Abdomen and Pelvis With Intravenous Contrast CLINICAL HISTORY: Reason for exam: right sided pain. TECHNIQUE: Axial computed tomography images of the abdomen and pelvis with intravenous contrast. CTDI is 26.12 mGy and DLP is 1381.73 mGy-cm. Automated exposure control was utilized for the study. A dose lowering technique was utilized adhering to the principles of ALARA. CONTRAST: Patient received 115 ml optiray 320 of IV contrast COMPARISON: No relevant prior studies available. FINDINGS: Lung bases: Reported separately. ABDOMEN: Liver: Unremarkable. No mass. Gallbladder and bile ducts: Unremarkable. No calcified stones. No ductal dilation. Pancreas: Unremarkable. No mass. No ductal dilation. Spleen: Unremarkable. No splenomegaly. Adrenals: Unremarkable. No mass. Kidneys and ureters: No hydronephrosis. Indeterminate 11 mm exophytic right renal lesion measuring 36 Hounsfield units (axial 143). Complex cystic 3.1 cm mass left kidney midpole with central soft tissue density component (axial 138). Stomach and bowel: Sigmoid diverticulosis without diverticulitis. No bowel obstruction. PELVIS: Appendix: Normal appendix. Bladder: Unremarkable. No mass. Reproductive: Unremarkable as visualized. ABDOMEN and PELVIS: Intraperitoneal space: Trace free pelvic fluid. No free air. Bones/joints: No acute fracture. No dislocation. Soft tissues: Unremarkable. Vasculature: Unremarkable. No abdominal aortic aneurysm. Lymph nodes: Unremarkable. No enlarged lymph nodes. IMPRESSION: 1. Trace free pelvic fluid. 2. Indeterminate bilateral renal lesions, largest in the left kidney measuring 3.1 cm. Further imaging workup with renal ultrasound correlation and possibly renal mass protocol CT or MRI. Electronically signed by: Fiorella Soto M.D. 04/11/25 22:48 PM Chest CTA 04/11/25 20:49 Exam(s): CTA CHEST IV Amt: 115 ml optiray 320 EXAM: CT Angiography Chest With Intravenous Contrast CLINICAL HISTORY: Reason for exam: PE. TECHNIQUE: Axial computed tomographic angiography images of the chest with intravenous contrast. CTDI is 20 mGy and DLP is 13 80 mGy-cm. Automated exposure control was utilized for the study. A dose lowering technique was utilized adhering to the principles of ALARA. MIP reconstructed images were created and reviewed. COMPARISON: 03/23/2025 FINDINGS: Pulmonary arteries: No evidence of acute pulmonary embolism. Aorta: No thoracic aortic aneurysm. Lungs: Patchy bilateral irregular ground-glass opacities as well as small peripheral consolidations. Pleural space: Small partially loculated left pleural effusion and trace right pleural effusion. No pneumothorax. Heart: Cardiomegaly. No pericardial effusion or coronary artery atherosclerosis. Bones/joints: No acute fracture. No dislocation. Soft tissues: Unremarkable. Lymph nodes: No lymphadenopathy by size criteria. IMPRESSION: 1. No evidence of acute pulmonary embolism. 2. Patchy bilateral irregular ground-glass opacities as well as small peripheral consolidations. Appearance is concerning for viral/atypical infection. Degree of parenchymal lung abnormality is improved from prior. 3. Cardiomegaly. 4. Small partially loculated left pleural effusion and trace right pleural effusion. Electronically signed by: Fiorella Soto M.D. 04/11/25 22:47 PM Medications Administered 1L NSS Mag sulfate 1g IV Mag oxide 400mg po Lorazepam 0.5mg IV ECG Additional Comments: SVT, LAFB, LVH 158 bpm, QRS 86, QT/QTc 296/480, PRT */-51/71 Code Status & VTE Plan Code Status Full Supervising Physician Co-Signing Physician Notes Attending addendum: I have physically seen this patient, have supervised the DONA's activities, and agree with the H&P unless as otherwise noted. Assessment and Plan: The patient is a 45-year-old male with past medical history including SVT, thrombophlebitis, prior DVT of arm, HFrEF, ischemic hepatitis, alcoholic cardiomyopathy, prior acute hypoxic respiratory failure requiring intubation, thrombocytopenia, Crohn's disease, and chronic diarrhea. He presents to the emergency department from [facility] due to report of SVT that was relieved by adenosine IV x 2. SVT/hypertension/HFrEF- Patient was converted to normal sinus rhythm after receiving adenosine IV x [address] [facility]. Differential causes including but not limited to: Hypomagnesemia, alcoholic cardiomyopathy, persistent left lower lobe loculated pleural effusion, others. The patient will be admitted to telemetry for serial cardiac enzymes, serial EKG's, cardiac rhythm monitoring Most recent echocardiogram on 04/07/2025 with severely reduced left ventricular systolic dysfunction, left ventricle moderately dilated, severe global hypokinesis of the left ventricle. Ejection fraction 20 to 25%. Troponin 13.2 with follow-up pending Magnesium 1.5, which she will receive 2 g IV to target 2.0 Elevated D-dimer of 4240 with CTA chest negative for PE Continue metoprolol, lisinopril, spironolactone Consult cardiology Left lower lobe loculated pleural effusion/bilateral pleural effusions- Treated with 10 days of antibiotics at last admission CT in the ED this evening suggestive of viral/atypical process per radiology interpretation Will ask pulmonology for their assessment Hypomagnesemia- Magnesium 1.5 on admission Received 3 g IV replacement noted, recheck laboratories in a.m. Bilateral renal lesions- Renal ultrasound 06/09/2018 noted left renal cyst 2.[address] scan abdomen pelvis in 03/15/2025 notes left largest cyst 3.[address] abdomen pelvis today notes bilateral renal lesions, with largest on the left side 3.1 cm Overall appears stable Should be followed routinely Alcohol abuse- Had been at [facility], and then went from [facility] to [facility]. Patient was to be transferred back to [facility] tomorrow 04/12 for ongoing rehab Remaining orders and notations as noted PG Care Time/CCT Total # of Minutes Spent Total Time Spent with Patient: Total time spent is greater than 50% in coordination of care (as documented) at patient's floor/unit and/or counseling patient: Coding Level of Care Code 71312 INT INP/OBS CARE 3/75MIN Diagnoses SVT (supraventricular tachycardia) I47.10 Loculated pleural effusion J90 Hypomagnesemia E83.42 Hyponatremia E87.1 Bilateral renal masses N28.89
[2025-04-12] MEDS: APIXABAN 5 MG TABLET PO STA (00:19)
[2025-04-12] MEDS: GABAPENTIN 800 MG TAB PO STA (00:53)
[2025-04-12] MEDS: OLANZapine 10 MG TAB PO STA (00:53)
[2025-04-12] MEDS: MAGNESIUM SULFATE / D5W 1 GM/100 ML BAG IV SCH (01:34)
[2025-04-12] MEDS ORDERED: ONDANSETRON 4 MG OD TAB PO PRN (02:11)
[2025-04-12] MEDS ORDERED: ONDANSETRON INJ 2 MG/ML 2 ML VIAL IV PRN (02:11)
[2025-04-12] MEDS ORDERED: POLYETHYLENE (MIRALAX) 17 GM PACK PO PRN (02:11)
[2025-04-12 05:57] LABS: Hematocrit (blood only) 32.2 % (42.0-52.0); Hemoglobin 10.0 g/dl (14.0-18.0); Mean Corpuscular Hemoglobin 25.4 pg (25.0-34.0); Mean Corpuscular Volume 81.9 fL (80.0-100.0); Platelet Count 332 K/uL (130-400); RDW Standard Deviation 45.7 fL (36.4-46.3); Red Blood Count 3.93 M/uL (4.70-6.10); White Blood Count 5.92 K/ul (4.8-10.8)
[2025-04-12 06:11] LABS: Anion Gap 8.0 (3-11); Blood Urea Nitrogen 7.0 mg/dl (6-23); Calcium 8.6 mg/dl (8.6-10.3); Carbon Dioxide 23.0 mmol/L (21-32); Chloride 105.0 mmol/L (98-107); Creatinine Clr Calc Pharmacy 174.9 ml/min; Glucose 87.0 mg/dl (70-99(Fasting)); Magnesium 2.4 mg/dl (1.7-2.4); Potassium 3.9 mmol/L (3.5-5.1); Sodium 136.0 mmol/L (136-145)
--- NOTE | 2025-04-12 07:44 | Hospitalist Progress Note ---
Date of Service April 12, 2025 Assessment & Plan (1) SVT (supraventricular tachycardia): (2) Loculated pleural effusion: Plan In summary this is a 45-year-old male who presents to the [facility] due to recurrent SVT while at his acute rehab facility The patient's SVT was able to be successfully aborted with medical interventions; he has not reentered into this; cardiology was curb sided for recommendations given their recent evaluation of the patient during his previous hospitalization, they suggested increasing the patient's long-acting data dixie for continued control but again emphasized the patient is not medically able to undergo any kind of more invasive intervention at this time given the complications related to the recent hospitalization Increase metoprolol to succinate to 75 mg p.o. daily Continue the patient's previously prescribed medications The patient was found to have a left lower lobe loculated effusion; this was discussed with pulmonology, and it is too small of a lesion to intervene on at this time; additionally is not causing any significant hypoxia that requires oxygen supplementation, they recommended against any type of intervention during this hospitalization unless the patient begins to show signs and symptoms of volume overload consequential of this loculated effusion The patient's electrolyte abnormalities have improved with interventions provided in the emergency department Start magnesium 400 mg p.o. daily The patient does not appear to have any kind of acute exacerbation of his other chronic medical conditions at this time; there was an attempt to discharge the patient to [facility] from the emergency department as he is medically stable however during and ambulatory test requested by [facility] medical staff, the patient did have a measured desaturation into the mid to low 80%'s with some subjective shortness of breath. Subsequently, a two-step study was ordered which the patient did not require any oxygen for. At this point in the day that it is too late to coordinate safe transfer to [facility], anticipate the patient can be transferred on 04/13 assuming there are no unforeseen complications Admission and Anticipated Discharge Date Admission Date: April 11, 2025 Subjective Mr. 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 The patient was subsequently admitted for reevaluation by cardiology with respect to their SVT as well as a left lower lobe loculated pleural effusion for which pulmonology was also consulted. No acute events since admission; feels well at this time, eager for discharge back to [facility] in order to be transferred to [facility] for continued alcohol use disorder rehabilitation Review of Systems Review of Systems: Review of cardiovascular, pulmonary, constitutional systems was unremarkable Physical Exam Physical Exam: General: Adult male in no acute distress Vital Signs: Reviewed; slightly tachycardic with regular rhythm otherwise unremarkable HEENT: Moist mucous membranes Neck: Tracheostomy site healing well Pulmonary: Symmetric chest wall excursion without restriction; diffuse soft crackles, diminished air movement present in the left lower posterior lobe Cardiovascular: Tachycardic rate with regular rhythm without murmurs, rubs, or gallops; S1 and S2 normal; right radial pulse 2+ Gastrointestinal: Soft, nondistended; slight tenderness present in the left lower quadrant Neurologic: Cranial nerves II through XII grossly intact; no discernible focal weakness no paresthesias Results & Data Results & Data Vital Signs (Past 12 Hours) Vital Signs Pulse Pulse Resp BP BP Pulse Ox O2 Del Method 04/12/25 07:18 97 H 04/12/25 05:31 91 H 20 110/70 93 Room Air 04/12/25 04:30 90 24 98/61 L 93 04/12/25 03:47 95 H 04/12/25 03:30 90 20 114/73 94 04/12/25 03:00 90 23 116/81 94 04/12/25 02:30 99 H 20 112/76 94 04/12/25 02:00 100 H 22 121/86 94 04/12/25 01:00 100 H 24 113/88 98 04/12/25 00:33 100 H 27 H 04/12/25 00:30 116/82 04/12/25 00:30 116/82 04/12/25 00:30 116/82 04/12/25 00:27 101 H 27 H 04/12/25 00:00 106 H 24 114/84 95 04/11/25 23:30 95 H 22 113/76 97 04/11/25 23:00 121/80 04/11/25 23:00 100 H 24 121/80 97 Room Air 04/11/25 22:53 102 H 04/11/25 22:24 101 H 24 127/101 H 99 Room Air 04/11/25 22:00 99 H 23 120/87 98 Room Air 04/11/25 21:42 105 H 22 105/74 95 Room Air 04/11/25 21:03 99 H 14 04/11/25 21:00 115/80 04/11/25 20:51 99 H 17 98 Room Air 04/11/25 20:30 119/76 04/11/25 20:30 102 H 20 119/76 96 Room Air 04/11/25 20:09 101 H 22 117/80 98 Room Air PG Care Time/CCT Total # of Minutes Spent Total Time Spent with Patient: Total time spent is greater than 50% in coordination of care (as documented) at patient's floor/unit and/or counseling patient: Coding Level of Care Code 07143 SUB INP/OBS CARE 2/35MIN Diagnoses SVT (supraventricular tachycardia) I47.10 Loculated pleural effusion J90
[2025-04-12] MEDS: ACETAMINOPHEN 325 MG TAB PO PRN (08:56)
[2025-04-12] MEDS: THIAMINE HCL 100 MG TAB PO SCH (09:04)
[2025-04-12] MEDS: GABAPENTIN 800 MG TAB PO SCH (09:06)
[2025-04-12] MEDS: FOLIC ACID 1 MG TAB PO SCH (09:07)
[2025-04-12] MEDS: SPIRONOLACTONE 25 MG TAB PO SCH (09:07)
[2025-04-12] MEDS: METOPROLOL SUCC 50MG EXT REL TAB PO SCH (09:07)
--- NOTE | 2025-04-12 10:51 | Electrocardiogram Report ---
Test Reason : Blood Pressure : */* mmHG Vent. Rate : 118 BPM Atrial Rate : 118 BPM P-R Int : 148 ms QRS Dur : 100 ms QT Int : 318 ms P-R-T Axes : 56 -39 101 degrees QTcB Int : 445 ms Sinus tachycardia Possible Left atrial enlargement Left axis deviation Abnormal ECG When compared with ECG of 11-Apr-2025 14:46, (unconfirmed) No significant change was found Confirmed by Lanre Pillai ([id number]) on 04/12/2025 10:51:30 AM Referred By: REFERRED SELF Confirmed By: Lanre Pillai
[2025-04-12] MEDS: KETOROLAC 30 MG/ML VIAL IV ONE (11:45)
[2025-04-12] MEDS: METOPROLOL TARTRATE 25 MG TAB PO STA (14:12)
[2025-04-12] MEDS: ACETAMINOPHEN 500 MG TAB PO PRN (20:04)
[2025-04-12] MEDS: MELATONIN 3 MG TAB PO SCH (20:04)
[2025-04-12] MEDS: OLANZapine 10 MG TAB PO SCH (20:05)
[2025-04-13 08:41] LABS: Hematocrit (blood only) 33.9 % (42.0-52.0); Hemoglobin 10.7 g/dl (14.0-18.0); Immature Granulocytes # (auto) 0.01 K/uL (0.01-0.20); Immature Granulocytes % (auto) 0.1 %; Mean Corpuscular Hemoglobin 25.7 pg (25.0-34.0); Mean Corpuscular Volume 81.3 fL (80.0-100.0); Platelet Count 330 K/uL (130-400); RDW Standard Deviation 45.4 fL (36.4-46.3); Red Blood Count 4.17 M/uL (4.70-6.10); White Blood Count 7.32 K/ul (4.8-10.8)
[2025-04-13 09:02] LABS: Alanine Aminotransferase 41.0 U/L (7-52); Albumin Globulin Ratio 0.8 (0.9-2); Albumin Level 3.5 gm/dl (3.4-5.0); Alkaline Phosphatase 110.0 U/L (34-104); Anion Gap 8.0 (3-11); Bilirubin,Total 1.2 mg/dl (0.2-1.0); Blood Urea Nitrogen 8.0 mg/dl (6-23); Calcium 9.2 mg/dl (8.6-10.3); Carbon Dioxide 24.0 mmol/L (21-32); Chloride 102.0 mmol/L (98-107); Creatinine Clr Calc Pharmacy 157.9 ml/min; Globulin 4.5 gm/dl (2.5-4.0); Glucose 94.0 mg/dl (70-99(Fasting)); Magnesium 2.0 mg/dl (1.7-2.4); Potassium 4.5 mmol/L (3.5-5.1); Sodium 134.0 mmol/L (136-145); Total Protein 8.0 gm/dl (6.0-8.3)
[2025-04-13] MEDS: MAGNESIUM OXIDE 400 MG TAB PO SCH (09:18)
[2025-04-13] MEDS: METOPROLOL SUCC 25MG EXT REL TAB PO SCH (10:06)
--- NOTE | 2025-04-13 19:26 | Hospitalist Progress Note ---
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 Subsequently at [facility] for rehab, planning for discharge to [facility] for alcohol rehab. Went into SVT so was readmitted. SVT Resolved, increased metoprolol to 75 mg daily. As discussed with senior materials analyst Currently some mild sinus tachycardia which I expect with his cardiomyopathy, unchanged throughout hospital course Fever Low-grade x2 over past 24 hours, procalcitonin not elevated. No URI or urinary symptoms. He says this was because he bundled in 3 blankets and a shirt anna and turned the heat to 80 -monitor, order blood cultures if Tm >38.0 Left Lower Lobe Loculated Effusions - small, seen on admission chest CT Sequela of pneumonia previous hospitalization, no significant hypoxia or symptoms, research interviewer recommended no intervention unless symptomatic. HFrEF Alcohol-induced cardiomyopathy, continue low-dose lisinopril and metoprolol, reassess outpatient for Entresto and SGLT2 inhibitors. Stable. Follow up with [facility]F clinic DVT Right upper extremity and right jugular vein DVT related to central line (no longer present), anticoagulate with apixaban 5 mg twice daily for 3 months. Reordered apixaban Alcoholic Hepatitis Resolved, follow-up imaging normal, improved LFTs, minimal bilirubin elevation. Severe Alcohol Use Disorder Inpatient rehab at [facility] starting Tuesday, needs to walk up to a mile per facility. Today walking three laps around nursing unit at a time, does cause fatigue, not using walker or any assistive device Anxiety Disorder Continue Zyprexa and gabapentin. 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 Not symptomatic DVT Prophylaxis: SCDs Admission and Anticipated Discharge Date Admission Date: April 11, 2025 Physical Exam Physical Exam: Last 24h vitals reviewed GEN: no acute distress, sitting in bed. thin appearing HEENT: pupils equal, sclerae anicteric, moist MM RESP: normal WOB, CTAB CV: reg mildly tachycardic systolic murmur ABD: soft/nt/nd +BT : no dixon SKIN: warm and dry, no generalized rashes No LE edema. wwp NEURO: AOx person, place, and situation. Face symmetric, speech normal, moves 4 ext spontaneously and equally. Has made a few confused statements today Results & Data Results & Data Vital Signs (Past 12 Hours) Vital Signs Temp Pulse Pulse Pulse Pulse Resp Resp 04/13/25 17:50 37.2 C 115 H 17 04/13/25 12:29 115 H 04/13/25 09:56 96 H 88 20 04/13/25 07:49 37.6 C H 113 H 17 Resp BP Pulse Ox Pulse Ox Pulse Ox O2 Del Method 04/13/25 17:50 126/60 99 Room Air 04/13/25 12:29 04/13/25 09:56 18 94 98 04/13/25 07:49 101/67 97 Room Air Laboratory Results - Labs: - White blood count: 7 - Hemoglobin: 10.7 - Platelets: 330 - Sodium: 134 - Potassium: 4.5 - BUN: 8 - Creatinine: 0.62 - Magnesium: 2.0 - Total bilirubin: 1.2 (improved from 3.5 in first week of March) - AST: Normal - ALT: Normal - Alk phos: Slightly elevated at 1 - Albumin: 3.5 (significantly improved from mid twos in the beginning of March) - Procalcitonin: 0.35 PG Care Time/CCT Total # of Minutes Spent Total Time Spent with Patient: Total time spent is greater than 50% in coordination of care (as documented) at patient's floor/unit and/or counseling patient: Coding Level of Care Code 17055 SUB INP/OBS CARE 2/35MIN Diagnoses SVT (supraventricular tachycardia) I47.10 Loculated pleural effusion J90 Arm DVT (deep venous thromboembolism), acute I82.629 HFrEF (heart failure with reduced ejection fraction) I50.20 Severe alcohol use disorder, in early remission F10.21
--- NOTE | 2025-04-13 20:05 | Communication Note ---
Date of Service: April 13, 2025 Fever to 39.1 I saw him a little bit ago and he was asymptomatic of anything but fatigue / low exercise tolerance with his CHF no resp sx, no URI, no abd pain or diarrhea, no dysuria Has known small loculated pleural effusions from pneumonia prior admission Procal low this AM Ordered blood cultures, resp biofire, CXR, UA Not currently on abx
[2025-04-13] MEDS: GABAPENTIN 600 MG TAB PO SCH (20:19)
[2025-04-13] MEDS: APIXABAN 5 MG TABLET PO SCH (20:20)
[2025-04-13 20:58] LABS: Appearance Urine Clear (Clear); Glucose Urine UA Negative (Negative)
[2025-04-13 21:24] LABS: Chlamydia pneumoniae PCR Not Detected (NotDetected); Coronavirus 229E PCR Not Detected (NotDetected); Coronavirus CoV-2 (COVID19)PCR Not Detected (NotDetected); Coronavirus HKU1 PCR Not Detected (NotDetected); Coronavirus NL63 PCR Not Detected (NotDetected); Coronavirus OC43PCR Not Detected (NotDetected); Human Metapneumovirus PCR Not Detected (NotDetected); Parainfluenza Virus 1 PCR Not Detected (NotDetected); Parainfluenza Virus 2 PCR Not Detected (NotDetected); Parainfluenza Virus 3 PCR Not Detected (NotDetected); Parainfluenza Virus 4 PCR Not Detected (NotDetected); Respiratory Syncytial VirusPCR Not Detected (NotDetected); Rhinovirus/Enterovirus PCR Not Detected (NotDetected)
--- NOTE | 2025-04-13 21:58 | XRay Report ---
Exam(s): XR CXR 1 VIEW EXAM: XR Chest, 1 View CLINICAL HISTORY: Reason for exam: fever. TECHNIQUE: Frontal view of the chest. COMPARISON: 04/11/2025 FINDINGS: Lungs: Left basilar airspace disease, atelectasis or pneumonia. Persistent nodular opacities (x2) lateral right midlung and lateral right lower lung. Right lung appears otherwise clear. Pleural space: Worsening moderate left pleural effusion. Heart: Stable cardiomegaly. Bones/joints: No acute fracture. No dislocation. IMPRESSION: 1. Left basilar airspace disease, atelectasis or pneumonia. 2. Persistent nodular opacities (x2) lateral right midlung and lateral right lower lung. 3. Worsening moderate left pleural effusion. Electronically signed by: Fiorella Soto M.D. 04/13/25 21:57 PM
--- NOTE | 2025-04-14 09:34 | Hospitalist Progress Note ---
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 Subsequently at [facility] for rehab, planning for discharge to [facility] for alcohol rehab. Went into SVT so was readmitted. # Fever, dyspnea. Additional signs of infection, persistent sinus tachycardia and development of some delirium Workup 04/14 notable for significantly enlarging L sided pleural effusion compared to 04/11. Blood cx pending, UA neg, resp biofire pending, procal and WBC low My concern is empyema or new pneumonia with parapneumonic effusion. Could be from heart failure but typically that would be right sided or bilateral Known to have persistent small loculated effusions based on 04/11 CTA, sequela of pneumonia early/mid March, previously discussed with pulmonary thought asx and too small to drain -consult pulmonary - discussed, holding apixaban thoracentesis planned -hold apixaban for now -ordered CBC diff, BMP, procal, CRP, ESR. Notable for CRP 20 and ESR 130. 4 pm recurrent fever to 39.4, HR 104. concerning for sepsis -ordered 500 mL NS and hold apironolactone - small amount of IVF because of HFrEF, bp at recent baseline -repeat blood cultures -recheck BMP, lactate -start empiric abx with cefepime and vancomycin (currently 48h stop) -consider repeating chest, abdominal CT - however - had same scans three days ago -discussed with bedside KING Hernandez # SVT Resolved, increased metoprolol to 75 mg daily. As discussed with documentation billing clerk # HFrEF Alcohol-induced cardiomyopathy, continue low-dose lisinopril and metoprolol, reassess outpatient for Entresto and SGLT2 inhibitors. Stable. Follow up with [facility] CHF clinic # DVT Right upper extremity and right jugular vein DVT related to central line (no longer present), anticoagulate with apixaban 5 mg twice daily for 3 months. -dose of apixaban 04/13, currently held for potential procedure # Alcoholic Hepatitis Resolved, follow-up imaging normal, improved LFTs, minimal bilirubin elevation. # Severe Alcohol Use Disorder Inpatient rehab at [facility] starting Tuesday, needs to walk up to a mile per facility. Today walking three laps around nursing unit at a time, does cause fatigue, not using walker or any assistive device # Anxiety Disorder Continue Zyprexa and gabapentin. 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 Not symptomatic DVT Prophylaxis: SCDs (apixaban held for thoracentesis) Admission and Anticipated Discharge Date Admission Date: April 11, 2025 Subjective Tmax past 24h 39.1 Continues with sinus tachycardia and some episodes of confusion/disorientation noted yesterday Today feels short of breath Physical Exam Physical Exam: Last 24h vitals reviewed GEN: no acute distress, sitting in bed. thin appearing HEENT: pupils equal, sclerae anicteric, moist MM RESP: tachypneic, breath sounds absent left base CV: reg mildly tachycardic systolic murmur ABD: soft/nt/nd +BT : no dixon SKIN: warm and dry, no generalized rashes No LE edema. wwp NEURO: AOx person, place, and situation. Face symmetric, speech normal, moves 4 ext spontaneously and equally. Results & Data Results & Data Vital Signs (Past 12 Hours) Vital Signs Temp Pulse Resp BP Pulse Ox O2 Del Method 04/14/25 07:02 37.5 C 119 H 17 103/65 93 Room Air 04/14/25 03:56 36.8 C 117 H 18 105/72 94 Room Air 04/14/25 00:04 36.8 C 105 H 18 100/66 95 Room Air Laboratory Results CXR - personally reviewed film - L pleural effusion significantly enlarged compared to 04/11 CXR and CTA. Associated L base atelectasis or pneumonia. nodular opacities on R unchanged UA was negative Resp biofire was negative Procal 0.35 Blood cultures pending PG Care Time/CCT Total # of Minutes Spent Total Time Spent with Patient: Total time spent is greater than 50% in coordination of care (as documented) at patient's floor/unit and/or counseling patient: Coding Level of Care Code 50430 SUB INP/OBS CARE 350MIN Diagnoses SVT (supraventricular tachycardia) I47.10 Loculated pleural effusion J90 Arm DVT (deep venous thromboembolism), acute I82.629 HFrEF (heart failure with reduced ejection fraction) I50.20 Severe alcohol use disorder, in early remission F10.21
[2025-04-14 09:57] LABS: Hematocrit (blood only) 34.7 % (42.0-52.0); Hemoglobin 10.6 g/dl (14.0-18.0); Immature Granulocytes # (auto) 0.03 K/uL (0.01-0.20); Immature Granulocytes % (auto) 0.3 %; Mean Corpuscular Hemoglobin 24.5 pg (25.0-34.0); Mean Corpuscular Volume 80.1 fL (80.0-100.0); Platelet Count 357 K/uL (130-400); RDW Standard Deviation 44.9 fL (36.4-46.3); Red Blood Count 4.33 M/uL (4.70-6.10); White Blood Count 10.09 K/ul (4.8-10.8)
[2025-04-14 10:14] LABS: Anion Gap 10.0 (3-11); Blood Urea Nitrogen 10.0 mg/dl (6-23); Calcium 9.2 mg/dl (8.6-10.3); Carbon Dioxide 22.0 mmol/L (21-32); Chloride 99.0 mmol/L (98-107); Creatinine Clr Calc Pharmacy 146.1 ml/min; Glucose 167.0 mg/dl (70-99(Fasting)); Potassium 4.6 mmol/L (3.5-5.1); Sodium 131.0 mmol/L (136-145)
--- NOTE | 2025-04-14 10:37 | Pulmonary Consultation ---
Date of Consultation April 14, 2025 Assessment & Plan (1) Recurrent left pleural effusion: * Recurrent left pleural effusion, worsening since admission 3 days prior * Parenchymal changes at the left base most likely related to passive atelectasis. * Previously patient had bilateral pleural effusions. * Left pleural effusion drained on 03/23/2025 during critical illness: suspected pneumonia complicating HFrEF. No virulent organisms grown from BAL or pleural effusion. * Highly likely recurrent effusion related to HFrEF. * Discussed with Dr. Bone. Patient has received 2 doses of Eliquis since yesterday evening. Would consult IR for diagnostic/symptomatic thoracentesis. Hold Eliquis in the interim. (2) Abnormal chest CT: * Nodular change noted on the right hemithorax on plain films consistent with small areas of loculated pleural collections seen on chest CT. * Parenchymal changes on CT on admission are residual changes from recent illness, which are improving. (3) Dyspnea: * Dyspnea on exertion as well as orthopnea. Most likely related to HFrEF and severe cardiomyopathy. * Pleural effusion can contribute, but symptoms have been present since before recurrence of pleural effusion. (4) Fever: * Two episodes of fever on the last couple of evenings. Unclear etiology at this time. * Clinical picture is not consistent with pneumonia or empyema. No evidence of empyema when left effusion drained on 03/23/2025. (5) HFrEF (heart failure with reduced ejection fraction): History of Present Illness Reason for Consultation: Worsening pleural effusion with fever. Requesting Physician: Dr. Bone Attending Physician: Jadyn Bone MD History of Present Illness The patient is a very pleasant 45-year-old male who presented to the Emergency Department on 04/11/2025 for evaluation of tachycardia. He had been at an inpatient rehabilitation facility ([facility]) and was scheduled for transfer to inpatient alcohol rehabilitation the following day. He reported a history of SVT and experienced palpitations throughout the day of presentation to the ED. His arrhythmia was initially broken with a carotid maneuver and subsequently with adenosine, but he continued to have symptoms, prompting transfer for further ev aluation. He denied chest pain, shortness of breath, leg pain, or increasing calf pain, and stated he had been compliant with his outpatient medications, including an anticoagulant. During his ED evaluation, he was found to be in SVT, which was treated with adenosine and converted to NSR. He was noted to have anemia, hypomagnesemia, hyponatremia, and an elevated D-dimer. Imaging revealed a left loculated pleural effusion, patchy bilateral ground glass opacities, and bilateral renal masses. There was no evidence of PE on CTA. He remained asymptomatic from a respiratory standpoint, with no cough, fever, or hypoxia at the time of admission. Cardiology were consulted, and his metoprolol was increased for rate control. Magnesium was replaced, and further fluids were deferred. During his hospital course, he remained stable, with no recurrence of SVT and only mild sinus tachycardia, which was attributed to his underlying cardiomyopathy. 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 Note from 04/14/2025: Since admission on the evening of 04/11/2025 the patient has been slightly tachycardic, and his temperature was around 38C on the evening of 04/12 and up to 39.1 on the evening of 04/13/2025, both happening around 8 pm. The patient denies problems with cough. His only complaint is that he feels worsened dyspnea when he lies down, and that he feels that his breathing improves when he sits up or stands up. There has not been any problem with hypoxemia or needing Oxygen supplementation. Allergies Allergy/AdvReac Type Severity Reaction Status Date / Time gluten Allergy Severe Anaphylaxis Verified 04/11/25 21:48 peanut Allergy Severe Anaphylaxis Verified 04/11/25 21:48 peanut oil Allergy Severe ANAPHYLAXIS Verified 04/11/25 21:48 lidocaine [From Xylocaine] Allergy Unknown Unknown Verified 04/11/25 21:48 Home Medications Medication Instructions Recorded Confirmed Type apixaban 5 mg tablet (Eliquis) 5 mg PO BID 30 days #60 tabs 04/07/25 04/11/25 Rx folic acid 1 mg tablet 1 mg PO DAILY #30 tabs 04/07/25 04/11/25 Rx melatonin 3 mg tablet 3 mg PO HS #30 tabs 04/07/25 04/11/25 Rx multivitamin with folic acid 400 1 tab PO QAM #30 tabs 04/07/25 04/11/25 Rx mcg tablet (Daily-Meseret (with folic acid)) olanzapine 10 mg tablet 10 mg PO HS #30 tabs 04/07/25 04/11/25 Rx olanzapine 5 mg tablet 5 mg PO QAM #30 tabs 04/07/25 04/11/25 Rx spironolactone 25 mg tablet 25 mg PO QAM 30 days #30 tabs 04/07/25 04/11/25 Rx acetaminophen 325 mg tablet 650 mg PO Q4H PRN Pain (Scale 04/11/25 04/11/25 H istory (Tylenol) Score 1-3) acetaminophen 500 mg tablet 500 mg PO Q4H PRN TEMP =>100.5 04/11/25 04/11/25 History bisacodyl 10 mg rectal suppository 10 mg GA DAILY PRN Constipation 04/11/25 History docusate sodium 100 mg capsule 100 mg PO Q12H PRN Constipation 04/11/25 04/11/25 History gabapentin 800 mg tablet 800 mg PO TID 04/11/25 04/11/25 History lisinopril 2.5 mg tablet 2.5 mg PO DAILY 04/11/25 04/11/25 History metoprolol succinate 50 mg 50 mg PO DAILY 04/11/25 04/11/25 History tablet,extended release 24 hr ondansetron 4 mg disintegrating 4 mg PO Q6H PRN NAUSEA/VOMITING 04/11/25 04/11/25 History tablet polyethylene glycol 3350 17 17 g PO QDL PRN Constipation 04/11/25 04/11/25 History gram/dose oral powder (Miralax) sennosides 8.6 mg tablet (Senokot) 8.6 mg PO QDL PRN Constipation 04/11/25 04/11/25 History sodium phosphates 19 gram-7 133 ml GA DAILY PRN Constipation 04/11/25 04/11/25 History gram/118 mL enema (Fleet Enema) thiamine HCl (vitamin B1) 100 mg 100 mg PO DAILY 04/11/25 04/11/25 History tablet magnesium 250 mg tablet 250 mg PO BID 30 days #60 tabs 04/12/25 Rx metoprolol succinate 25 mg 75 mg (3 x 25 mg) PO DAILY 30 days 04/12/25 Rx tablet,extended release 24 hr #90 tabs Patient History Medical History Blood in stool reason for upcoming colonoscopy (bright red blood) Surgical History History of myringotomy BMT History of tonsillectomy History of colonoscopy Family History Other No family history of adverse response to anesthesia Social History Smoking Status: Never smoker Second Hand Exposure: No; Do You Dip or Chew Tobacco: No; Hx Alcohol Use: Yes Hx Substance Use: No Preferred Language: Polish Communication Ability: Effective Manager [employer] Required: No Beliefs That Will Affect Care: None Current Living Situation: Spouse Feels Safe at Home: Yes Safety Concerns: Feels Safe At This Time Assistive Devices: None Review of Systems Review of Systems: All systems reviewed & are unremarkable except as noted in HPI & below Physical Exam Physical Exam: General: In no acute distress, breathing room-air. Skin: Warm and dry to touch. Noobvious lesions. Eyes: Anicteric.Noconjunctival hyperemia or exudates.No periorbital edema. ENT: No oral thrush. No oropharyngeal erythema or exudates. Neck: No palpable masses or adenopathy. Scar from previous tracheostomy. Respiratory: Decreased breath sounds with dullness over the left base up to 1/3 hemithorax, no wheezing or crackles. No use of accessory muscles and no prolonged exhalation. Cardiac: Distant sounds, regular rhythm, no murmurs, no gallops, no rubs; could not appreciate JV pulse elevation. GI: Soft, nontender. Extremities No clubbing,no cyanosis,no edema. Neuro: No gross motor deficits. Seems appropriate. No facial-droop. Speech is clear. Results & Data Results & Data Vital Signs (Past 12 Hours) Vital Signs Temp Pulse Resp BP Pulse Ox O2 Del Method 04/14/25 10:17 Room Air 04/14/25 07:02 37.5 C 119 H 17 103/65 93 Room Air 04/14/25 03:56 36.8 C 117 H 18 105/72 94 Room Air 04/14/25 00:04 36.8 C 105 H 18 100/66 95 Room Air Laboratory Results 04/13/25 20:19 Aerobic Blood Culture - Pending Blood Anaerobic Blood Culture - Pending 04/13/25 20:12 Aerobic Blood Culture - Pending Blood Anaerobic Blood Culture - Pending 04/14/25 04/13/25 04/13/25 09:42 20:35 20:25 WBC 10.09 RBC 4.33 L Hgb 10.6 L Hct 34.7 L MCV 80.1 MCH 24.5 L MCHC 30.5 L RDW Std Deviation 44.9 RDW Coeff of Iris 15.5 H Plt Count 357 MPV 8.9 L Immature Gran % (Auto) 0.3 Neut % (Auto) 77.7 Lymph % (Auto) 12.0 Eagle % (Auto) 9.2 Eos % (Auto) 0.1 Baso % (Auto) 0.7 Neut # (Auto) 7.84 H Lymph # (Auto) 1.21 Eagle # (Auto) 0.93 H Eos # (Auto) 0.01 Baso # (Auto) 0.07 Immature Gran # (Auto) 0.03 ESR > 130 H Sodium 131 L Potassium 4.6 Chloride 99 Carbon Dioxide 22 Anion Gap 10 BUN 10 Creatinine 0.67 Est Cr Clr Drug Dosing 146.1 eGFR 116.61 BUN/Creatinine Ratio 14.9 Glucose 167 H Calcium 9.2 C-Reactive Protein 25.05 H Procalcitonin 0.39 Urine Color Yellow Urine Appearance Clear Urine pH 7.0 Ur Specific Viking 1.010 Urine Protein Negative Urine Glucose (UA) Negative Urine Ketones Negative Urine Blood Negative Urine Nitrite Negative Urine Bilirubin Negative Urine Urobilinogen Negative Ur Leukocyte Esterase Negative Urine Comment Adenovirus (PCR) Not Detected B. pertussis DNA (PCR) Not Detected B.parapertussis DNA PCR Not Detected C. pneumoniae DNA (PCR) Not Detected Coronavirus OC43 (PCR) Not Detected Coronavirus HKU1 (PCR) Not Detected Coronavirus 229E (PCR) Not Detected SARS-CoV-2 (PCR) Not Detected Coronavirus NL63 (PCR) Not Detected Human Metapneumovir PCR Not Detected Influenza Type A (PCR) Not Detected Influenza Type B (PCR) Not Detected M. pneumoniae (PCR) Not Detected Parainfluenza 1 (PCR) Not Detected Parainfluenza 2 (PCR) Not Detected Parainfluenza 3 (PCR) Not Detected Parainfluenza 4 (PCR) Not Detected RSV (PCR) Not Detected Entero/Rhino (PCR) Not Detected Diagnostic Findings Chest X-Ray 04/13/25 20:02 Exam(s): XR CXR 1 VIEW EXAM: XR Chest, 1 View CLINICAL HISTORY: Reason for exam: fever. TECHNIQUE: Frontal view of the chest. COMPARISON: 04/11/2025 FINDINGS: Lungs: Left basilar airspace disease, atelectasis or pneumonia. Persistent nodular opacities (x2) lateral right midlung and lateral right lower lung. Right lung appears otherwise clear. Pleural space: Worsening moderate left pleural effusion. Heart: Stable cardiomegaly. Bones/joints: No acute fracture. No dislocation. IMPRESSION: 1. Left basilar airspace disease, atelectasis or pneumonia. 2. Persistent nodular opacities (x2) lateral right midlung and lateral right lower lung. 3. Worsening moderate left pleural effusion. Electronically signed by: Fiorella Soto M.D. 04/13/25 21:57 PM Medications Administered Home Medications Medication Instructions Recorded Confirmed Last Taken apixaban 5 mg tablet (Eliquis) 5 mg PO BID 30 days #60 tabs 04/07/25 04/11/25 04/11/25 09:00 folic acid 1 mg tablet 1 mg PO DAILY #30 tabs 04/07/25 04/11/25 04/11/25 melatonin 3 mg tablet 3 mg PO HS #30 tabs 04/07/25 04/11/25 04/10/25 multivitamin with folic acid 400 1 tab PO QAM #30 tabs 04/07/25 04/11/25 04/11/25 mcg tablet (Daily-Meseret (with folic acid)) olanzapine 10 mg tablet 10 mg PO HS #30 tabs 04/07/25 04/11/25 04/10/25 olanzapine 5 mg tablet 5 mg PO QAM #30 tabs 04/07/25 04/11/25 04/11/25 spironolactone 25 mg tablet 25 mg PO QAM 30 days #30 tabs 04/07/25 04/11/25 04/11/25 acetaminophen 325 mg tablet 650 mg PO Q4H PRN Pain (Scale 04/11/25 04/11/25 Unknown (Tylenol) Score 1-3) acetaminophen 500 mg tablet 500 mg PO Q4H PRN TEMP =>100.5 04/11/25 04/11/25 Unknown bisacodyl 10 mg rectal suppository 10 mg GA DAILY PRN Constipation 04/11/25 04/11/25 Unknown docusate sodium 100 mg capsule 100 mg PO Q12H PRN Constipation 04/11/25 04/11/25 Unknown gabapentin 800 mg tablet 800 mg PO TID 04/11/25 04/11/25 04/11/25 12:00 lisinopril 2.5 mg tablet 2.5 mg PO DAILY 04/11/25 04/11/25 04/11/25 metoprolol succinate 50 mg 50 mg PO DAILY 04/11/25 04/11/25 04/11/25 tablet,extended release 24 hr ondansetron 4 mg disintegrating 4 mg PO Q6H PRN NAUSEA/VOMITING 04/11/25 04/11/25 Unknown tablet polyethylene glycol 3350 17 17 g PO QDL PRN Constipation 04/11/25 04/11/25 Unknown gram/dose oral powder (Miralax) sennosides 8.6 mg tablet (Senokot) 8.6 mg PO QDL PRN Constipation 04/11/25 04/11/25 Unknown sodium phosphates 19 gram-7 133 ml GA DAILY PRN Constipation 04/11/25 04/11/25 Unknown gram/118 mL enema (Fleet Enema) thiamine HCl (vitamin B1) 100 mg 100 mg PO DAILY 04/11/25 04/11/25 04/11/25 tablet magnesium 250 mg tablet 250 mg PO BID 30 days #60 tabs 04/12/25 Unknown metoprolol succinate 25 mg 75 mg (3 x 25 mg) PO DAILY 30 days 04/12/25 Unknown tablet,extended release 24 hr #90 tabs Active Medications Generic Name Dose Route Start Last Admin Trade Name Freq PRN Reason Stop Dose Admin Acetaminophen 500 mg 04/12/25 02:11 04/13/25 20:20 Acetaminophen 500 Mg Tab PO 05/12/25 02:10 500 mg Q4H PRN Administration TEMP =>100.5 Acetaminophen 650 mg 04/12/25 02:11 04/12/25 08:56 Acetaminophen 325 Mg Tab PO 05/12/25 02:10 650 mg Q4H PRN Administration Pain (Scale Score 1-3) Apixaban 5 mg 04/13/25 21:00 04/14/25 08:39 Apixaban 5 Mg Tablet PO 05/13/25 20:59 5 mg BID ZACH Administration Folic Acid 1 mg 04/12/25 09:00 04/14/25 07:53 Folic Acid 1 Mg Tab PO 05/12/25 08:59 1 mg DAILY ZACH Administration Gabapentin 600 mg 04/13/25 21:00 04/14/25 07:53 Gabapentin 600 Mg Tab PO 05/13/25 20:59 600 mg TID ZACH Administration Lisinopril 2.5 mg 04/12/25 09:00 04/14/25 07:53 Lisinopril 2.5 Mg Tab PO 05/12/25 08:59 2.5 mg DAILY ZACH Administration Magnesium Oxide 400 mg 04/13/25 09:00 04/14/25 07:54 Magnesium Oxide 400 Mg Tab PO 05/13/25 08:59 400 mg QAM ZACH Administration Melatonin 3 mg 04/12/25 21:00 04/13/25 20:19 Melatonin 3 Mg Tab PO 05/12/25 20:59 3 mg HS ZACH Administration Metoprolol Succinate 75 mg 04/13/25 09:00 04/14/25 07:53 Metoprolol Succ 25mg Ext Rel Tab PO 05/13/25 08:59 75 mg DAILY ZACH Administration Olanzapine 5 mg 04/12/25 09:00 04/14/25 07:53 Olanzapine 5 Mg Tablet PO 05/12/25 08:59 5 mg QAM ZACH Administration Olanzapine 10 mg 04/12/25 21:00 04/13/25 20:19 Olanzapine 10 Mg Tab PO 05/12/25 20:59 10 mg HS ZACH Administration Spironolactone 25 mg 04/12/25 09:00 04/14/25 07:53 Spironolactone 25 Mg Tab PO 05/12/25 08:59 25 mg QAM ZACH Administration Thiamine HCl 100 mg 04/12/25 09:00 04/14/25 07:54 Thiamine Hcl 100 Mg Tab PO 05/12/25 08:59 100 mg DAILY ZACH Administration PG Care Time/CCT Total # of Minutes Spent Total Time Spent with Patient: Total time spent is greater than 50% in coordination of care (as documented) at patient's floor/unit and/or counseling patient: Coding Level of Care Code 49057 IN/OBS CONSULT LVL 4,60M Diagnoses Recurrent left pleural effusion J90 Abnormal chest CT R93.89 Dyspnea R06.00 Fever R50.9 HFrEF (heart failure with reduced ejection fraction) I50.20 Time Spent (min) 65
[2025-04-14] MEDS ORDERED: VANCOMYCIN CONSULT ACTIVE PRN (16:00)
[2025-04-14 16:50] LABS: Base Excess VBG -1.0 mEq/L; HCO3 VBG 22 mmol/L; Oxygen Saturation VBG 86.5 %; PCO2 VBG 32 mmHg (38-50); PO2 VBG 56 mmHg; pH VBG 7.45 (7.36-7.41)
[2025-04-14] MEDS: SODIUM CHLORIDE 0.9% 500 ML IV ONE (16:57)
[2025-04-14] MEDS: CEFEPIME 2000MG 2,000 MG/20 ML SYR IV SCH (16:57)
[2025-04-14] MEDS: VANCOMYCIN HCL 1,500 MG in SODIUM CHLORIDE 0.9% 500 ML IV ONE (16:57)
[2025-04-14 17:14] LABS: Anion Gap 10.0 (3-11); Blood Urea Nitrogen 9.0 mg/dl (6-23); Calcium 8.9 mg/dl (8.6-10.3); Carbon Dioxide 21.0 mmol/L (21-32); Chloride 100.0 mmol/L (98-107); Creatinine Clr Calc Pharmacy 160.5 ml/min; Glucose 104.0 mg/dl (70-99(Fasting)); Potassium 4.4 mmol/L (3.5-5.1); Sodium 131.0 mmol/L (136-145)
[2025-04-15] MEDS: VANCOMYCIN HCL 1,500 MG in SODIUM CHLORIDE 0.9% 500 ML IV SCH (01:55)
--- NOTE | 2025-04-15 08:53 | XRay Report ---
XR chest 1V portable CLINICAL HISTORY: fever, L pleural effusion COMPARISON STUDY: 04/13/2025 FINDINGS: Stable prominent cardiomegaly without pulmonary vascular congestion. There is a stable left pleural effusion and pulmonary consolidation at the left mid and lower lung. There is a stable small area of patchy nodular opacity at the right mid lung laterally. No pneumothorax seen. Stable old rig ht mid rib fractures. IMPRESSION: Stable exam. ACT 112: Negative or not required by law. Electronically signed by: Jadon Kearney M.D. 04/15/2025 8:52 AM
[2025-04-15 09:01] LABS: Hematocrit (blood only) 36.6 % (42.0-52.0); Hemoglobin 10.8 g/dl (14.0-18.0); Mean Corpuscular Hemoglobin 24.1 pg (25.0-34.0); Mean Corpuscular Volume 81.7 fL (80.0-100.0); Platelet Count 357 K/uL (130-400); RDW Standard Deviation 46.0 fL (36.4-46.3); Red Blood Count 4.48 M/uL (4.70-6.10); White Blood Count 7.05 K/ul (4.8-10.8)
[2025-04-15 09:46] LABS: Anion Gap 10.0 (3-11); Calcium 9.1 mg/dl (8.6-10.3); Carbon Dioxide 20.0 mmol/L (21-32); Chloride 103.0 mmol/L (98-107); Potassium 4.4 mmol/L (3.5-5.1); Sodium 133.0 mmol/L (136-145)
[2025-04-15 09:52] LABS: Blood Urea Nitrogen 8.0 mg/dl (6-23); Creatinine Clr Calc Pharmacy 145.8 ml/min; Glucose 133.0 mg/dl (70-99(Fasting))
--- NOTE | 2025-04-15 14:16 | Pharmacy Report ---
Pharmacy PK ABX Note - Date of Service April 15, 2025 - Assessment and Plan Assessment 45 year old M receiving vancomycin and cefepime empirically. Patient with recent prolonged admission for pneumonia. Hx of newly dx HF, hx alcoholic hepatitis. Pulmonary consulted - per notes clinical picture not consistent with pneumonia/empyema. Initial blood cultures negative, repeat blood cultures pending. Continues to have fevers. Ordered random vancomycin level today to assess current regimen. Level came back at ~11.3 mcg/ml - current dosing predicted to achieve goal AUC/NATHALIA therefore will continue current regimen. Plan Vancomycin * Loading dose: 1500 mg IV x 1 * Maintenance dose: 1500 mg IV every 12 hours * Regimen is predicted to achieve target AUC/NATHALIA of 400-600 mg/L.hr * Ordered only as empiric x 48 hours - will need to follow up on duration Pharmacy will continue to follow and will adjust dose/frequency as necessary. Thank you. Pharmacy has transitioned to AUC monitoring for vancomycin. AUC/NATHALIA is the preferred PK/PD target and is associated with decreased risk of nephrotoxicity compared to traditional trough targets.
--- NOTE | 2025-04-15 15:53 | Pulmonology Progress Note ---
Date of Service April 15, 2025 Assessment & Plan (1) HFrEF (heart failure with reduced ejection fraction): (2) Recurrent left pleural effusion: (3) Arm DVT (deep venous thromboembolism), acute: Plan Patient is a 45-year-old male with a past medical history of cardiomyopathy (HFrEF, likely alcohol-induced), history of alcohol abuse, provoked right IJ DVT on Eliquis. The patient had a prolonged hospital course at [facility] after presenting from rehab with shortness of breath on 03/12/2025. The patient was in respiratory failure requiring mechanical ventilation and had a prolonged ICU course requiring tracheostomy. The patient was found to have cardiomyopathy with an EF of 20 to 25% and ischemic hepatitis. Also developed a IJ DVT for which he required anticoagulation. The patient was treated for alcohol withdrawal, shock, and was successfully transferred out of the ICU. He was discharged from the hospital on 04/07/2025 and followed up with internal medicine and cardiology outpatient. The patient presented back to the hospital on 04/11/2025 from his [facility] for SVT. The patient received adenosine and converted back to normal sinus rhythm. CT imaging of the chest was negative for PE however did show some infiltrates and pleural effusions. The patient was admitted to the hospitalist service. Pulmonary was consulted for pleural effusion. Previous investigations: Patient underwent thoracentesis on the left 03/23/2025. 32% neutrophils, 30% lymphocytes, pH 7.44, WBC 1576, protein less than 3, LDH 232, glucose 119. Culture negative. Bronchoscopy with BAL showing 51% neutrophils and 14% lymphocytes on 03/23/2025. Culture with only Britt. Right thoracentesis 03/12/2025 with 1% neutrophils, 38% lymphocytes, pH 7.46, WBC 802, low protein and LDH 123. Glucose 136. Culture negative. Problem list: Heart failure with reduced ejection fraction Bilateral pleural effusion, left greater than right Provoked DVT on Eliquis Plan: Patient has significant left-sided pleural effusion. I have reviewed his images and compared them to his most recent one. Patient has some GGO's and nodular infiltrates bilaterally, however in comparison to his previous films they are overall much improved. Procalcitonin is low. The right pleural effusion is small in the base and has some small pockets of loculation, I do not think that this would be possible to tap at this time. The left pleural effusion is larger and could be accessed with bedside thoracentesis. The patient has been started on cefepime and vancomycin. Is on lisinopril, metoprolol, thiamine. Eliquis is on hold, his last dose was yesterday morning. Aldactone is on hold. At this time we can proceed with bedside thoracentesis, diagnostic and therapeutic. Pleural effusion has been present for some time, may have some lung entrapment so we will be careful when removing fluid. Will send for cultures and full fluid analysis. Patient is requesting something for anxiety prior to his procedure, we can provide him with some Ativan. Continue to hold Eliquis. Patient may have breakfast, no need for NPO. Will likely proceed with thoracentesis tomorrow afternoon. Monitor daily weight, monitor for signs of volume overload, if necessary please resume diuretics as patient has significantly reduced ejection fraction and could become volume overloaded very easily. Thank you for this consult. I will follow with you. Admission and Anticipated Discharge Date Admission Date: April 11, 2025 Subjective Patient is doing well this afternoon during bedside rounds. Sitting up in chair. He is on room air. He says that overall his breathing is much improved compared to yesterday. Not having fevers or chills. He believes that the antibiotics have helped him significantly. I discussed possible thoracentesis at bedside tomorrow. The patient has some anxiety about this but is agreeable to proceed if it is indicated. There is diminished breath sounds at the left base. No wheezing appreciated. Review of Systems Review of Systems: Negative except as in HPI Physical Exam Physical Exam: Physical examination: General: Well-appearing, well-nourished and not in acute distress. HEENT: Normocephalic, atraumatic. Extraocular movements intact. Sclera are nonicteric. No JVD appreciated. Skin: Warm and dry. No rashes appreciated. No jaundice appreciated. Cardiovascular: Heart is a regular rate and rhythm, no murmurs appreciated on my exam. Trace edema of lower extremities. Lungs: Good air movement on the right without wheezing. Diminished at left base. On room air. Abdomen: Nondistended, nontender to palpation. No masses appreciated. Musculoskeletal: Normal muscle mass and tone. No gross joint deformity abnormalities. No effusions appreciated. Neurologic: Awake and alert, oriented. CN II through XII are grossly intact. Speech is fluent. Nonfocal exam. Psychiatric: Appropriate cooperative during my exam. Results & Data Results & Data Vital Signs (Past 12 Hours) Vital Signs Temp Pulse Resp BP Pulse Ox O2 Del Method 04/15/25 10:54 Room Air 04/15/25 10:47 36.8 C 86 18 105/68 91 Room Air 04/15/25 07:24 36.6 C 112 H 19 123/76 96 Room Air 04/15/25 03:54 38.4 C H 118 H 18 102/71 92 Room Air Laboratory Results Leukocytosis decreasing to 7 from 10. Hemoglobin stable. Platelets 357. ESR significantly elevated greater than 130. CRP is also elevated at 24.2. Procalcitonin was 0.39 on 04/14/2025. Viral PCR was negative. Cultures with no growth today. Diagnostic Findings Patient had CT imaging on 04/11/2025. I personally reviewed these films. Left- sided pleural effusion is moderate in size. Areas of loculated fluid in the fissures on the right. Small pleural effusion appreciated in the right base. Atelectasis with some air bronchograms in the left lower lobe. Patchy and nodular GGO's/opacifications appreciated bilaterally. In comparison to CT imaging from 03/12/2025 and 03/23/2025 the overall appearance of lung parenchyma is significant improved, less pulmonary edema and decrease in size of pleural effusions. PG Care Time/CCT Total # of Minutes Spent Total Time Spent with Patient: Total time spent is greater than 50% in coordination of care (as documented) at patient's floor/unit and/or counseling patient: [place] [address] SUB INP/OBS CARE 2/35MIN Patient Type Established History Comprehensive Exam Comprehensive Medical Decision Making Moderate Complexity Diagnoses HFrEF (heart failure with reduced ejection fraction) I50.20 Recurrent left pleural effusion J90 Arm DVT (deep venous thromboembolism), acute I82.629
--- NOTE | 2025-04-15 17:23 | Hospitalist Progress Note ---
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 Subsequently at [facility] for rehab, planning for discharge to [facility] for alcohol rehab. Went into SVT so was readmitted. # sepsis which started on 04/13, suspicious for pulmonary source. persistent fevers, sinus tachycardia Workup 04/14- notable for significantly enlarging L sided pleural effusion compared to 04/11. Blood cx no growth to date, UA neg, resp biofire negative, serial procal negative, severely elevated ESR and CRP My concern is empyema or new pneumonia with parapneumonic effusion. Could be from heart failure but typically that would be right sided or bilateral Known to have persistent small loculated effusions based on 04/11 CTA, sequela of pneumonia early/mid March, previously discussed with pulmonary thought asx and too small to drain -consulted pulmonary - discussed with Dr. Davis and also with IR, holding apixaban thoracentesis planned either tomorrow with pulmonary or Tuesday with IR. Fortunately he looks a lot more stable today -hold apixaban - continue cefepime and vancomycin for possible hap # SVT - original reason for admission Resolved quickly, increased metoprolol to 75 mg daily. As discussed with development trainer # HFrEF Alcohol-induced cardiomyopathy, continue low-dose lisinopril and metoprolol, reassess outpatient for Entresto and SGLT2 inhibitors. Stable. Follow up with [facility] CHF clinic # DVT Right upper extremity and right jugular vein DVT related to central line (no longer present), anticoagulate with apixaban 5 mg twice daily for 3 months. -dose of apixaban 04/13, currently held for procedure, resume when safe after thoracentesis # Alcoholic Hepatitis Resolved, follow-up imaging normal, improved LFTs, minimal bilirubin elevation. # Severe Alcohol Use Disorder Inpatient rehab at [facility] planned, however, needs to walk up to a mile per facility. Tuesday/Tuesday was able to do multiple laps around the inpatient unit prior to development of sepsis # Anxiety Disorder Continue Zyprexa and gabapentin. Has had a few disorientation episodes so decreased gabapentin from 800 tid to 600 tid. he wants to taper off of this would increase to 300 mg 3 times daily in several days or a week he does not know why he is on gabapentin he does not have any pain issues, it was started during/ after recent critical illness # Terminal Ileitis History from 2020 colonoscopy and biopsies, no definitive diagnosis of IBD or Crohn's. Not symptomatic DVT Prophylaxis: SCDs (apixaban held for thoracentesis). is ambulating frequently Admission and Anticipated Discharge Date Admission Date: April 11, 2025 Subjective Bobo feels MUCH better today Tmax 38.4 at 3 am. Remains tachycardic but no longer so dyspneic, no longer tachypneic Physical Exam Physical Exam: Last 24h vitals reviewed GEN: looks much better HEENT: pupils equal, sclerae anicteric, moist MM RESP: no longer tachypneic, breath sounds absent on left 2/[address] way up, DTP CV: reg mildly tachycardic systolic murmur ABD: soft/nt/nd +BT : no dixon SKIN: warm and dry, no generalized rashes No LE edema. wwp NEURO: AOx person, place, and situation. Face symmetric, speech normal, moves 4 ext spontaneously and equally. Results & Data Results & Data Vital Signs (Past 12 Hours) Vital Signs Temp Pulse Resp BP Pulse Ox O2 Del Method 04/15/25 15:57 36.7 C 115 H 22 108/76 93 Room Air 04/15/25 10:54 Room Air 04/15/25 10:47 36.8 C 86 18 105/68 91 Room Air 04/15/25 07:24 36.6 C 112 H 19 123/76 96 Room Air Laboratory Results white blood count 7 hemoglobin 10.8 platelets normal sodium 133, anion gap 10, BUN 8 creatinine 0.67 lactate this morning 1.2 CRP today 24, which is same as yesterday procalcitonin negative on 04/11, 04/13, 04/14 blood cultures remain no growth to date PG Care Time/CCT Total # of Minutes Spent Total Time Spent with Patient: Total time spent is greater than 50% in coordination of care (as documented) at patient's floor/unit and/or counseling patient: Coding Level of Care Code 59090 SUB INP/OBS CARE 350MIN Diagnoses SVT (supraventricular tachycardia) I47.10 Loculated pleural effusion J90 Arm DVT (deep venous thromboembolism), acute I82.629 HFrEF (heart failure with reduced ejection fraction) I50.20 Severe alcohol use disorder, in early remission F10.21
[2025-04-16 06:08] LABS: Hematocrit (blood only) 29.3 % (42.0-52.0); Hemoglobin 9.3 g/dl (14.0-18.0); Mean Corpuscular Hemoglobin 25.1 pg (25.0-34.0); Mean Corpuscular Volume 79.2 fL (80.0-100.0); Platelet Count 329 K/uL (130-400); RDW Standard Deviation 43.9 fL (36.4-46.3); Red Blood Count 3.70 M/uL (4.70-6.10); White Blood Count 6.72 K/ul (4.8-10.8)
[2025-04-16 06:29] LABS: Anion Gap 10.0 (3-11); Blood Urea Nitrogen 6.0 mg/dl (6-23); Calcium 8.4 mg/dl (8.6-10.3); Carbon Dioxide 20.0 mmol/L (21-32); Chloride 105.0 mmol/L (98-107); Creatinine Clr Calc Pharmacy 203.4 ml/min; Glucose 90.0 mg/dl (70-99(Fasting)); Potassium 4.3 mmol/L (3.5-5.1); Sodium 135.0 mmol/L (136-145)
--- NOTE | 2025-04-16 08:03 | XRay Report ---
EXAM: XR chest 1V portable CLINICAL HISTORY: f/u TECHNIQUE: An X-ray image of the chest was obtained in the AP projection. COMPARISON: Prior 04/13/2025 FINDINGS: Pulmonary Parenchyma: There is redemonstration of the dense opacification in the left lung middle and lower zones, which has silhouetted the left hemidiaphragm, left costophrenic angle, cardiac apex, and left heart border partially. This represents consolidation with left pleural effusion and remains interval unchanged since the recent radiograph. A horizontal, thin, linear atelectatic band is seen in the mid zone, just superior to the left lung consolidation. Mild [id number] mediastinal shift is seen. Mild, scattered, patchy right lung opacification, suggesting an infective etiology, is seen and remains interval stable. There is no evidence of pleural effusion or pleural thickening on the right side. Heart and Mediastinum: Heart size and shape are normal. No hilar or mediastinal lymphadenopathy. Bony Thorax: The bony thorax appears intact without fractures or deformities. Soft Tissues: Soft tissues overlying the chest wall are unremarkable. IMPRESSION: 1. Interval stable left lung mid and lower zone consolidation and pleural effusion resulting in mild contralateral mediastinal shift. 2. Interval stable mild patchy scattered right lung infective changes. 3. Interval new linear atelectatic band in the left lung mid zone just above the consolidation. Electronically signed by Stanislaw Shultz 04-16-2025 08:02 AM
[2025-04-16] MEDS: LORazepam 1 MG TAB SL STA (12:03)
[2025-04-16] MEDS ORDERED: LORazepam 1 MG/1 ML SYR ED Inj Use IV STA (17:08)
--- NOTE | 2025-04-16 17:19 | Pulmonology Progress Note ---
Date of Service April 16, 2025 Assessment & Plan (1) HFrEF (heart failure with reduced ejection fraction): (2) Recurrent left pleural effusion: (3) Arm DVT (deep venous thromboembolism), acute: Plan Patient is a 45-year-old male with a past medical history of cardiomyopathy (HFrEF, likely alcohol-induced), history of alcohol abuse, provoked right IJ DVT on Eliquis. The patient had a prolonged hospital course at [facility] after presenting from rehab with shortness of breath on 03/12/2025. The patient was in respiratory failure requiring mechanical ventilation and had a prolonged ICU course requiring tracheostomy. The patient was found to have cardiomyopathy with an EF of 20 to 25% and ischemic hepatitis. Also developed a IJ DVT for which he required anticoagulation. The patient was treated for alcohol withdrawal, shock, and was successfully transferred out of the ICU. He was discharged from the hospital on 04/07/2025 and followed up with internal medicine and cardiology outpatient. The patient presented back to the hospital on 04/11/2025 from his [facility] for SVT. The patient received adenosine and converted back to normal sinus rhythm. CT imaging of the chest was negative for PE however did show some infiltrates and pleural effusions. The patient was admitted to the hospitalist service. Pulmonary was consulted for pleural effusion. Previous investigations: Patient underwent thoracentesis on the left 03/23/2025. 32% neutrophils, 30% lymphocytes, pH 7.44, WBC 1576, protein less than 3, LDH 232, glucose 119. Culture negative. Bronchoscopy with BAL showing 51% neutrophils and 14% lymphocytes on 03/23/2025. Culture with only Britt. Right thoracentesis 03/12/2025 with 1% neutrophils, 38% lymphocytes, pH 7.46, WBC 802, low protein and LDH 123. Glucose 136. Culture negative. Problem list: Heart failure with reduced ejection fraction Bilateral pleural effusion, left greater than right Provoked DVT on Eliquis Plan: Patient has significant left-sided pleural effusion. I have reviewed his images and compared them to his most recent one. Patient has some GGO's and nodular infiltrates bilaterally, however in comparison to his previous films they are overall much improved. Procalcitonin is low. The right pleural effusion is small in the base and has some small pockets of loculation, I do not think that this would be possible to tap at this time. The left pleural effusion is larger and could be accessed with bedside thoracentesis. The patient has been started on cefepime and vancomycin. Is on lisinopril, metoprolol, thiamine. Eliquis had been on hold for planned thoracentesis today. Patient is refusing procedure. Can resume Eliquis. Monitor daily weight, monitor for signs of volume overload, if necessary please resume diuretics as patient has significantly reduced ejection fraction and could become volume overloaded very easily. Recommend treating for 5 days of antibiotics empirically. Repeat imaging in the future with CT chest in 6 to 8 weeks. Thank you for this consult. I will sign off. Please call with any questions. Admission and Anticipated Discharge Date Admission Date: April 11, 2025 Subjective Patient is up and about his room this afternoon when I saw him. Plan was for thoracentesis today. When I entered the room the patient asked what I was doing there. I explained that I was here for the thoracentesis that we had discussed yesterday. He said absolutely no he does not want to have this procedure done. He is tired of being poked. Not having any shortness of breath Not having fevers or chills. Review of Systems Review of Systems: Negative except as in HPI. Physical Exam Physical Exam: Physical examination: General: Well-appearing, well-nourished and not in acute distress. HEENT: Normocephalic, atraumatic. Extraocular movements intact. Sclera are nonicteric. No JVD appreciated. Skin: Warm and dry. No rashes appreciated. No jaundice appreciated. Cardiovascular: Heart is a regular rate and rhythm, no murmurs appreciated on my exam. Trace edema of lower extremities. Lungs: Good air movement on the right without wheezing. Diminished at left base. On room air. Abdomen: Nondistended, nontender to palpation. No masses appreciated. Musculoskeletal: Normal muscle mass and tone. No gross joint deformity abnormalities. No effusions appreciated. Neurologic: Awake and alert, oriented. CN II through XII are grossly intact. Speech is fluent. Nonfocal exam. Psychiatric: Appropriate cooperative during my exam. Results & Data Results & Data Vital Signs (Past 12 Hours) Vital Signs Temp Pulse Resp BP BP Pulse Ox O2 Del Method 04/16/25 16:07 37.3 C 112 H 20 105/70 96 Room Air 04/16/25 11:53 Room Air 04/16/25 10:48 36.6 C 73 18 111/78 97 Room Air 04/16/25 07:08 36.9 C 99 H 20 117/76 93 Room Air PG Care Time/CCT Total # of Minutes Spent Total Time Spent with Patient: Total time spent is greater than 50% in coordination of care (as documented) at patient's floor/unit and/or counseling patient: Coding Level of Care Code 22945 SUB INP/OBS CARE 2/35MIN Diagnoses HFrEF (heart failure with reduced ejection fraction) I50.20 Recurrent left pleural effusion J90 Arm DVT (deep venous thromboembolism), acute I82.629
[2025-04-16] MEDS: LORazepam Inj 1 MG in SYRINGE 0.5 ML IV STA (17:25)
--- NOTE | 2025-04-16 22:14 | Hospitalist Progress Note ---
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 Subsequently at [facility] for rehab, planning for discharge to [facility] for alcohol rehab. Went into SVT so was readmitted. # sepsis which started on 04/13, suspicious for pulmonary source. persistent fevers, sinus tachycardia Workup 04/14- notable for significantly enlarging L sided pleural effusion compared to 04/11. Blood cx no growth to date, UA neg, resp biofire negative, serial procal negative, severely elevated ESR and CRP My concern is empyema or new pneumonia with parapneumonic effusion. Could be from heart failure but typically that would be right sided or bilateral Known to have persistent small loculated effusions based on 04/11 CTA, sequela of pneumonia early/mid March, previously discussed with pulmonary thought asx and too small to drain -consulted pulmonary - discussed with Dr. Davis and also with IR, holding apixaban thoracentesis planned either tomorrow with pulmonary or Tuesday with IR. Fortunately he looks a lot more stable today -hold apixaban - continue cefepime and vancomycin for possible hap # SVT - original reason for admission Resolved quickly, increased metoprolol to 75 mg daily. As discussed with customer service assistant # HFrEF Alcohol-induced cardiomyopathy, continue low-dose lisinopril and metoprolol, reassess outpatient for Entresto and SGLT2 inhibitors. Stable. Follow up with [facility] [place] # DVT Right upper extremity and right jugular vein DVT related to central line (no longer present), anticoagulate with apixaban 5 mg twice daily for 3 months. -dose of apixaban 04/13, currently held for procedure, resume when safe after thoracentesis # Alcoholic Hepatitis Resolved, follow-up imaging normal, improved LFTs, minimal bilirubin elevation. # Severe Alcohol Use Disorder Inpatient rehab at [facility] planned, however, needs to walk up to a mile per facility. Tuesday/Tuesday was able to do multiple laps around the inpatient unit prior to development of sepsis # Anxiety Disorder Continue Zyprexa and gabapentin. Has had a few disorientation episodes so decreased gabapentin from 800 tid to 600 tid. he wants to taper off of this would increase to 300 mg 3 times daily in several days or a week he does not know why he is on gabapentin he does not have any pain issues, it was started during/ after recent critical illness # Terminal Ileitis History from 2020 colonoscopy and biopsies, no definitive diagnosis of IBD or Crohn's. Not symptomatic DVT Prophylaxis: SCDs (apixaban held for thoracentesis). is ambulating frequently Admission and Anticipated Discharge Date Admission Date: April 11, 2025 Subjective "I'm feeling ok, doc. Breathing ok. No coughing or wheezing. I feel a lot better than when I came into this hospital 5 days ago. Another doc came in to see me before you did and I told him the same thing: "I am not getting that needle in my chest to get some fluid out when I am breathing ok. No fevers or anything bad. I am ok." Review of Systems Constitutional: Negative for antecedent/coincident fevers, chills, diaphoresis, cough, wheeze, sore throat, hemoptysis, chest pains, palpitations, pleurisy, nausea, vomiting, diarrhea, abdominal pain, pelvic pain, hematemesis, hematochezia, melena, hematuria, dysuria, frequency, urgency, headaches, dizziness, lightheadedness, visual changes, hearing changes, weakness, falls, syncope, trauma, travel history, sick contacts, or food/drug ingestions novel or new. All other review of systems are reported as negative by the patient on 04/16/2025. Physical Exam 2 Constitutional: General: Comfortable, cooperative and coherent. Wide awake and alert. Not confused, lethargic, or obtunded. Patient speaks in complete, fluent, and articulate sentences, without pause, interruption, cough, or wheeze. HEENT: NC/AT. EOMI. PERRL. No diplopia, homonymous hemianopsia, superior/inferior/nasal/temporal quadrantanopia, nystagmus, gaze paresis, anisocoria, miosis, mydriasis, chemosis, hyphema, scleral injection, conjunctivitis, pterygium, facial droop, dysarthria, or pronator drift. No otorrhea. No rhinorrhea. Neck: Supple, no stridor, bruit, or goiter. Jugular venous pressure 3 cm above the sternal angle of Josue, which is typically 5 cm above the right atrium. Lymph: No anterior/posterior cervical lymphadenopathy, supraclavicular/infraclavicular lymphadenopathy, axilla/epitrochlear/inguinal lymphadenopathy. Chest: Symmetric rise and fall with respirations. Non-tender to palpation. Heart: RRR, S1 and S2. No S3 or S4 summation gallop. No tripartite friction rub. No murmur. Lungs: Clear to auscultation and percussion. No audible expiratory wheeze, egophony, pectoriloquy, increase in tactile fremitus, or flatness/dullness to percussion at the bases. Abd: Soft, non-tender, non-distended. Bowel sounds auscultated in all 4 quadrants. No rebound, guarding, Oro's sign, or organomegaly. Ext: No clubbing, cyanosis, or edema. 2+ pedal pulses bilaterally. Skin: No decubitus ulcer or enanthem or exanthem. Neuro: Alert and oriented in regards to person, place, time, and situation. No tremors, tics, or myoclonus. DTR+. 5/5 motor strength in all 4 extremities, both proximally and distally. Urology: No dixon catheter. No diaper. No urethral discharge. Results & Data Results & Data Vital Signs (Past 12 Hours) Vital Signs Temp Pulse Resp BP BP Pulse Ox O2 Del Method 04/16/25 16:07 37.3 C 112 H 20 105/70 96 Room Air 04/16/25 11:53 Room Air 04/16/25 10:48 36.6 C 73 18 111/78 97 Room Air Laboratory Results Abnormal lab results 04/16/25 Range/Units 05:13 RBC 3.70 L (4.70-6.10) M/uL Hgb 9.3 L (14.0-18.0) g/dl Hct 29.3 L (42.0-52.0) % MCV 79.2 L (80.0-100.0) fL MCHC 31.7 L (32.0-36.0) g/dL RDW Coeff of Iris 15.4 H (11.5-14.5) % MPV 9.3 L (9.4-12.4) fL Sodium 135 L (136-145) mmol/L Carbon Dioxide 20 L (21-32) mmol/L Creatinine 0.48 L (0.6-1.4) mg/dl Calcium 8.4 L (8.6-10.3) mg/dl PG Care Time/CCT Total # of Minutes Spent Total Time Spent with Patient: Total time spent is greater than 50% in coordination of care (as documented) at patient's floor/unit and/or counseling patient: Coding Level of Care Code 97653 SUB INP/OBS CARE 2/35MIN Diagnoses SVT (supraventricular tachycardia) I47.10 Loculated pleural effusion J90 Arm DVT (deep venous thromboembolism), acute I82.629 HFrEF (heart failure with reduced ejection fraction) I50.20 Severe alcohol use disorder, in early remission F10.21
[2025-04-17 05:54] LABS: Hematocrit (blood only) 30.3 % (42.0-52.0); Hemoglobin 9.6 g/dl (14.0-18.0); Immature Granulocytes # (auto) 0.02 K/uL (0.01-0.20); Immature Granulocytes % (auto) 0.3 %; Mean Corpuscular Hemoglobin 25.1 pg (25.0-34.0); Mean Corpuscular Volume 79.3 fL (80.0-100.0); Platelet Count 333 K/uL (130-400); RDW Standard Deviation 44.5 fL (36.4-46.3); Red Blood Count 3.82 M/uL (4.70-6.10); White Blood Count 7.48 K/ul (4.8-10.8)
[2025-04-17] MEDS: metroNIDAZOLE 500 MG TAB PO SCH (12:36)
[2025-04-17 14:52] LABS: Creatinine Clr Calc Pharmacy 168.8 ml/min
--- NOTE | 2025-04-17 21:40 | Hospitalist Progress Note ---
Date of Service April 17, 2025 Assessment & Plan (1) SVT (supraventricular tachycardia): (2) Loculated pleural effusion: Plan: Patient remains afebrile with a normal WBC and is breathing comfortably with an O2 saturation of 96% on room air (04/17/2025, 7:12pm). Patient refuses to undergo left-sided thoracentesis on 04/16/2025 and on 04/17/2025, but is amenable to continuing empiric antibiotics, and in fact, has requested that he be started on oral antibiotics as he would like to be discharged home in the next 1-2-3 days to deal with the divorce papers that he was served in his room on 04/17/2025 am. To this end, I have noted that despite patient having received empiric vancomycin 1.5g IV q12 x 6 doses (04/14/2025, 4:57pm through 04/17/2025, 1:22am) and cefepime 2g IV q8 x 10 doses (04/14/2025, 4:57pm through 04/17/2025, 2:52pm), patient's procalcitonin level remains elevated: cf., Procalcitonin #1 0.32 ng/mL (04/16/2025, 9:20am). cf., Procalcitonin #2 0.34 ng/mL (04/17/2025, 5:33am). Of note, in a patient with pleural effusion, loculated or not loculated, and underlying infiltrate/consolidation, procalcitonin levels greater than 0.20 ng/mL is consistent with acute bacterial infection. Of note, this patient's MRSA nares screen was negative (04/17/2025, 12:00pm). Hence, I surmise: (a) patient's left mid-lung and left lower lung CAP is not responding to cefepime 2g IV q8, probably because cefepime does not cover anaerobic bacteria. Hence, I surmise: (b) patient does not have MRSA CAP of left mid-lung and left lower lung. To address (a), I have to continue cefepime 2g IV q8, AND to start patient on metronidazole 500mg PO q8 (day #1/5 on 04/17/2025, 12:36pm) to start covering potential anaerobic bacteria. To address (b), I have opted to D/C vancomycin 1.5g IV q12 on 04/17/2025, 12 :36pm. I will check vitals, chest exam, WBC w/diff, procalcitonin, and lactic acid levels in the 04/18/2025 am. 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 [facility] planning for [facility] to [facility] for alcohol rehab. Went into SVT so was readmitted. # sepsis which started on 04/13, suspicious for pulmonary source. persistent fevers, sinus tachycardia Workup 04/14- notable for significantly enlarging L sided pleural effusion compared to 04/11. Blood cx no growth to date, UA neg, resp biofire negative, serial procal negative, severely elevated ESR and CRP My concern is empyema or new pneumonia with parapneumonic effusion. Could be from heart failure but typically that would be right sided or bilateral Known to have persistent small loculated effusions based on 04/11 CTA, sequela of pneumonia early/mid March, previously discussed with pulmonary thought asx and too small to drain -consulted pulmonary - discussed with Dr. Davis and also with IR, holding apixaban thoracentesis planned either tomorrow with pulmonary or Tuesday with IR. Fortunately he looks a lot more stable today -hold apixaban - continue cefepime and vancomycin for possible hap # SVT - original reason for admission Resolved quickly, increased metoprolol to 75 mg daily. As discussed with director of user experience # HFrEF Alcohol-induced cardiomyopathy, continue low-dose lisinopril and metoprolol, reassess outpatient for Entresto and SGLT2 inhibitors. Stable. Follow up with [facility] # DVT Right upper extremity and right jugular vein DVT related to central line (no longer present), anticoagulate with apixaban 5 mg twice daily for 3 months. -dose of apixaban 04/13, currently held for procedure, resume when safe after thoracentesis # Alcoholic Hepatitis Resolved, follow-up imaging normal, improved LFTs, minimal bilirubin elevation. # Severe Alcohol Use Disorder Inpatient rehab at [facility] planned, however, needs to walk up to a mile per facility. Tuesday/Tuesday was able to do multiple laps around the inpatient unit prior to development of sepsis # Anxiety Disorder Continue Zyprexa and gabapentin. Has had a few disorientation episodes so decreased gabapentin from 800 tid to 600 tid. he wants to taper off of this would increase to 300 mg 3 times daily in several days or a week he does not know why he is on gabapentin he does not have any pain issues, it was started during/ after recent critical illness # Terminal Ileitis History from 2020 colonoscopy and biopsies, no definitive diagnosis of IBD or Crohn's. Not symptomatic DVT Prophylaxis: SCDs (apixaban held for thoracentesis). is ambulating frequently Admission and Anticipated Discharge Date Admission Date: April 11, 2025 Subjective "Today is a bad day, Doc. Some alber just served me divorce papers coming from my , in this very hospital room about 10 minutes ago. Can you believe it? We've been 21 years; we have 3 kids (2 girls and a boy; 21 years, 15 years, 7 years, the boy is 7 years old). My states that the reason for the divorce is because of my alcohol abuse. There was no cheating. There was no violence or fighting. Just the drinking. I told her that I will go to alcohol rehab and clean up my act. I told her that I will go to marriage counselling to save our marriage, but she is not having any of it. Today is a bad day, Doc." Review of Systems Constitutional: Positive for depression after being served divorce papers from his in his hospital room on 04/17/2025. Negative for antecedent/coincident suicidal ideation, homicidal ideation, fevers, chills, diaphoresis, cough, wheeze, sore throat, hemoptysis, chest pains, palpitations, pleurisy, nausea, vomiting, diarrhea, abdominal pain, pelvic pain, hematemesis, hematochezia, melena, hematuria, dysuria, frequency, urgency, headaches, dizziness, lightheadedness, visual changes, hearing changes, weakness, falls, syncope, trauma, travel history, sick contacts, or food/drug ingestions novel or new. All other review of systems are reported as negative by the patient on 04/17/2025. Physical Exam Constitutional: General: Comfortable, cooperative and coherent. Wide awake and alert. Not confused, lethargic, or obtunded. Patient speaks in complete, fluent, and articulate sentences, without pause, interruption, cough, or wheeze. HEENT: NC/AT. EOMI. PERRL. No diplopia, homonymous hemianopsia, superior/inferior/nasal/temporal quadrantanopia, nystagmus, gaze paresis, anisocoria, miosis, mydriasis, chemosis, hyphema, scleral injection, conjunctivitis, pterygium, facial droop, dysarthria, or pronator drift. No otorrhea. No rhinorrhea. Neck: Supple, no stridor, bruit, or goiter. Jugular venous pressure 3 cm above the sternal angle of Josue, which is typically 5 cm above the right atrium. Lymph: No anterior/posterior cervical lymphadenopathy, supraclavicular/infraclavicular lymphadenopathy, axilla/epitrochlear/inguinal lymphadenopathy. Chest: Symmetric rise and fall with respirations. Non-tender to palpation. Heart: RRR, S1 and S2. No S3 or S4 summation gallop. No tripartite friction rub. No murmur. Lungs: Clear to auscultation and percussion. No audible expiratory wheeze, egophony, pectoriloquy, increase in tactile fremitus, or flatness/dullness to pe rcussion at the bases. Abd: Soft, non-tender, non-distended. Bowel sounds auscultated in all 4 quadrants. No rebound, guarding, Oro's sign, or organomegaly. Ext: No clubbing, cyanosis, or edema. 2+ pedal pulses bilaterally. Skin: No decubitus ulcer or enanthem or exanthem. Neuro: Alert and oriented in regards to person, place, time, and situation. No tremors, tics, or myoclonus. DTR+. 5/5 motor strength in all 4 extremities, both proximally and distally. Urology: No dixon catheter. No diaper. No urethral discharge. Results & Data Results & Data Vital Signs (Past 12 Hours) Vital Signs Temp Pulse Pulse Resp BP Pulse Ox O2 Del Method 04/17/25 19:12 36.4 C L 122 H 22 112/80 96 Room Air 04/17/25 16:20 38.1 C H 116 H 22 110/74 97 Room Air 04/17/25 15:21 110 H 04/17/25 14:16 36.6 C 115 H 22 115/76 98 Room Air Laboratory Results Abnormal lab results 04/17/25 Range/Units 05:33 RBC 3.82 L (4.70-6.10) M/uL Hgb 9.6 L (14.0-18.0) g/dl Hct 30.3 L (42.0-52.0) % MCV 79.3 L (80.0-100.0) fL MCHC 31.7 L (32.0-36.0) g/dL RDW Coeff of Iris 15.5 H (11.5-14.5) % MPV 9.0 L (9.4-12.4) fL [place] # (Auto) 0.61 H (0.11-0.59) K/uL Creatinine 0.56 L (0.6-1.4) mg/dl Lactic acid old 2.9 mmol/L (03/13/2025, 4:34am). Lactic acid #1 1.2 mmol/L (04/15/2025, 8:49am). Lactic acid #2 1.7 mmol/L (04/16/2025, 9:20am). Lactic acid #3 0.8 mmol/L (04/17/2025, 5:33am). Procalcitonin old 9.08 ng/mL (03/14/2025, 1:10pm). Procalcitonin #1 0.32 ng/mL (04/16/2025, 9:20am). Procalcitonin #2 0.34 ng/mL (04/17/2025, 5:33am). MRSA nares screen negative (04/17/2025, 12:00pm). Diagnostic Findings cf., 04/11/2025, 8:49pm CTA chest: 1. No evidence of acute pulmonary embolism. 2. Patchy bilateral irregular ground-glass opacities as well as small peripheral consolidations. Appearance is concerning for viral/atypical infection. Degree of parenchymal lung abnormality is improved from prior. 3. Cardiomegaly. 4. Small partially loculated left pleural effusion and trace right pleural effusion. cf., 04/13/2025, 8:02pm portable CXR: 1. Left basilar airspace disease, atelectasis or pneumonia. 2. Persistent nodular opacities (x2) lateral right midlung and lateral right lower lung. 3. Worsening moderate left pleural effusion. cf., 04/15/2025, 8:01am portable CXR: 1. Stable prominent cardiomegaly without pulmonary vascular congestion. There is a stable left pleural effusion and pulmonary consolidation at the left mid and lower lung. There is a stable small area of patchy nodular opacity at the right mid lung laterally. No pneumothorax seen. Stable old right mid rib fractures. cf., 04/16/2025, 7:03am portable CXR: 1. Interval stable left lung mid and lower zone consolidation and pleural effusion resulting in mild contralateral mediastinal shift. 2. Interval stable mild patchy scattered right lung infective changes. 3. Interval new linear atelectatic band in the left lung mid zone just above the consolidation. PG Care Time/CCT Total # of Minutes Spent Total Time Spent with Patient: Total time spent is greater than 50% in coordination of care (as documented) at patient's floor/unit and/or counseling patient: Coding Level of Care Code 03944 SUB INP/OBS CARE 2/35MIN Diagnoses SVT (supraventricular tachycardia) I47.10 Loculated pleural effusion J90 Arm DVT (deep venous thromboembolism), acute I82.629 HFrEF (heart failure with reduced ejection fraction) I50.20 Severe alcohol use disorder, in early remission F10.21
[2025-04-18 05:34] LABS: Hematocrit (blood only) 30.3 % (42.0-52.0); Hemoglobin 9.4 g/dl (14.0-18.0); Immature Granulocytes # (auto) 0.02 K/uL (0.01-0.20); Immature Granulocytes % (auto) 0.3 %; Mean Corpuscular Hemoglobin 24.5 pg (25.0-34.0); Mean Corpuscular Volume 78.9 fL (80.0-100.0); Platelet Count 327 K/uL (130-400); RDW Standard Deviation 44.6 fL (36.4-46.3); Red Blood Count 3.84 M/uL (4.70-6.10); White Blood Count 7.61 K/ul (4.8-10.8)
[2025-04-18 05:50] LABS: Anion Gap 10.0 (3-11); Blood Urea Nitrogen 7.0 mg/dl (6-23); Calcium 9.1 mg/dl (8.6-10.3); Carbon Dioxide 23.0 mmol/L (21-32); Chloride 100.0 mmol/L (98-107); Creatinine Clr Calc Pharmacy 157.1 ml/min; Glucose 102.0 mg/dl (70-99(Fasting)); Potassium 4.2 mmol/L (3.5-5.1); Sodium 133.0 mmol/L (136-145)
[2025-04-18 07:13] VITALS: RESP 20
[2025-04-18 11:25] VITALS: TEMP 98.8; O2SAT 98
[2025-04-18 15:35] VITALS: BP 105/70; PULSE 102
--- NOTE | 2025-04-18 15:54 | Discharge Summary ---
Discharge Summary Date of Service April 18, 2025 Principal Dx & Hospital Course #1 = Principal Diagnosis (1) SVT (supraventricular tachycardia): (2) Loculated pleural effusion: Patient remains afebrile with a normal WBC and is breathing comfortably with an O2 saturation of 96% on room air (04/17/2025, 7:12pm). Patient refuses to undergo left-sided thoracentesis on 04/16/2025 and on 04/17/2025, but is amenable to continuing empiric antibiotics, and in fact, has requested that he be started on oral antibiotics as he would like to be discharged home in the next 1-2-3 days to deal with the divorce papers that he was served in his room on 04/17/2025 am. To this end, I noted that despite patient having received empiric vancomycin 1.5g IV q12 x 6 doses (04/14/2025, 4:57pm through 04/17/2025, 1:22am) and cefepime 2g IV q8 x 10 doses (04/14/2025, 4:57pm through 04/17/2025, 2:52pm), patient's procalcitonin level remained elevated: cf., Procalcitonin #1 0.32 ng/mL (04/16/2025, 9:20am). cf., Procalcitonin #2 0.34 ng/mL (04/17/2025, 5:33am). Of note, in a patient with pleural effusion, loculated or not loculated, and underlying infiltrate/consolidation, procalcitonin levels greater than 0.20 ng /mL is consistent with acute bacterial infection. Of note, this patient's MRSA nares screen was negative (04/17/2025, 12:00pm). Hence, I surmise: (a) patient's left mid-lung and left lower lung CAP is not responding to cefepime 2g IV q8, probably because cefepime does not cover anaerobic bacteria. Hence, I surmise: (b) patient does not have MRSA CAP of left mid-lung and left lower lung. To address (a), I opted to continue cefepime 2g IV q8, AND to start patient on metronidazole 500mg PO q8 (day #1 on 04/17/2025, 12:36pm) to start covering potential anaerobic bacteria. To address (b), I opted to D/C vancomycin 1.5g IV q12 on 04/17/2025, 12:36pm. Patient subsequently remains afebrile with a normal WBC and is breathing comfortably with an O2 saturation of 98% on room air (04/18/2025, 3:41pm). Patient continues to refuse to undergo left-sided thoracentesis on 04/18/2025, but is amenable to continuing empiric antibiotics. To this end, I have noted that patient's procalcitonin level has declined after starting patient on metronidazole 500mg PO q8 (day #1 on 04/17/2025, 12:36pm): cf., Procalcitonin #3 0.23 ng/mL (04/18/2025, 4:`8M). Hence, I surmise: (a) patient's left mid-lung and left lower lung CAP is responding to metronidazole 500mg PO q8. To address (a), I opted to continue metronidazole 500mg PO q8 (04/17/2025, 9:01pm; 04/18/2025, 3:58am, 12:16pm) while patient remained in . At the same time, I discontinued cefepime 2g IV q8 on 04/18/2025, 4:04pm. Of final note, patient was discharged to [facility] on 04/18/2025. Subsequently, patient will continue with metronidazole 500mg PO q8 on hospital discharge to [facility] with the next dose to be given on 04/18/2025, 8:16pm. In the off chance that patient decides at the very last minute NOT to go to [facility] on hospital discharge date 04/18/2025, and instead, opts to go to his father's home, or to a hotel room on hospital discharge date 04/18/2025, I transmitted an electronic prescription for metronidazole 500mg PO q8, #90 tablets, no refills, to his [facility] [place] [facility], [id number], [address], [place] [address], on 04/18/2025, prior to hospital discharge to [facility]. 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 Subsequently at [facility] for rehab, plann ing for discharge to [facility] for alcohol rehab. Went into SVT so was readmitted. # sepsis which started on 04/13, suspicious for pulmonary source. persistent fevers, sinus tachycardia Workup 04/14- notable for significantly enlarging L sided pleural effusion compared to 04/11. Blood cx no growth to date, UA neg, resp biofire negative, serial procal negative, severely elevated ESR and CRP My concern is empyema or new pneumonia with parapneumonic effusion. Could be from heart failure but typically that would be right sided or bilateral Known to have persistent small loculated effusions based on 04/11 CTA, sequela of pneumonia early/mid March, previously discussed with pulmonary thought asx and too small to drain -consulted pulmonary - discussed with Dr. Davis and also with IR, holding apixaban thoracentesis planned either tomorrow with pulmonary or Tuesday with IR. Fortunately he looks a lot more stable today -hold apixaban - continue cefepime and vancomycin for possible hap # SVT - original reason for admission Resolved quickly, increased metoprolol to 75 mg daily. 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 Stable. Follow up with [facility] # DVT Right upper extremity and right jugular vein DVT related to central line (no longer present), anticoagulate with apixaban 5 mg twice daily for 3 months. -dose of apixaban 04/13, currently held for procedure, resume when safe after thoracentesis # Alcoholic Hepatitis Resolved, follow-up imaging normal, improved LFTs, minimal bilirubin elevation. # Severe Alcohol Use Disorder Inpatient rehab at [facility] planned, however, needs to walk up to a mile per facility. Tuesday/Tuesday was able to do multiple laps around the inpatient unit prior to development of sepsis # Anxiety Disorder Continue Zyprexa and gabapentin. Has had a few disorientation episodes so dec reased gabapentin from 800 tid to 600 tid. he wants to taper off of this would increase to 300 mg 3 times daily in several days or a week he does not know why he is on gabapentin he does not have any pain issues, it was started during/ after recent critical illness # Terminal Ileitis History from 2020 colonoscopy and biopsies, no definitive diagnosis of IBD or Crohn's. Not symptomatic DVT Prophylaxis: SCDs (apixaban held for thoracentesis). is ambulating frequently Admission HPI Per Admitting Provider 45-year-old male PMHx SVT, thrombophlebitis, prior DVT of arm, HFrEF, ischemic hepatitis, cardiomyopathy, prior acute hypoxia respiratory failure requiring intubation, thrombocytopenia, Crohn's disease, and diarrhea presenting from [facility] for reports of SVT on the day of arrival. Pt was provided with Adenosine 160mg x 2 and converted to NSR. Patient states that he is "very tired" and states that he was just told that his heart rate was very fast the day of arrival. He complains of some left-sided pain that is "old on my left side" and described as a dull sensation. He states that earlier he felt that his heart was beating funny, but now he is without any symptoms. He denies chest pain, SOB, palpitations, or dizziness. Otherwise without acute symptoms, to states that he is very tired and ready to sleep because it is past his bedtime. He denies any cough, fever or chills, shortness of breath, or URI symptoms. He has no other complaints at present. Requesting Powerade. ED evaluation reveals CBC without leukocytosis, H/H 9.9/33.3; PT/INR 13.4/1.3, Ddimer 4240; CMP Na 132, glucose 122, AST 52, alk phos 116, albumin 3.1, globulin 4.3, ratio 0.7; Mag 1.5; troponin 13.2; TSH 0.327; CXR moderate L pleural effusion (progressed), increased opacity of LLL (atelectasis vs PNA), persistent RL mass, cardiomegaly; CTAP trace free pelvic fluid, indeterminant bilateral renal lesions (largest L @ 3.1 cm); CTA chest no PE, kiersten bilateral irregular ground glass opacities with peripheral consolidations (viral/atypical infection?), cardiomegaly, small partially loculated L pleural effusion, trace R pleural effusion; EKG SVT, LAFB, LVH at 158 bpm.; Provided with 1L NSS, Mag sulfate 1 g IV, mag oxide 400 mg po, and lorazepam 0.5mg IV in ED. Please see Dr. Mendieta's attestation for adjustments/additions to treatment plan. Discharge Exam Constitutional General: Comfortable, cooperative and coherent. Wide awake and alert. Not confused, lethargic, or obtunded. Patient speaks in complete, fluent, and articulate sentences, without pause, interruption, cough, or wheeze. HEENT: NC/AT. EOMI. PERRL. No diplopia, homonymous hemianopsia, superior/inferior/nasal/temporal quadrantanopia, nystagmus, gaze paresis, anisocoria, miosis, mydriasis, chemosis, hyphema, scleral injection, conjunctivitis, pterygium, facial droop, dysarthria, or pronator drift. No otorrhea. No rhinorrhea. Neck: Supple, no stridor, bruit, or goiter. Jugular venous pressure 3 cm above the sternal angle of Josue, which is typically 5 cm above the right atrium. Lymph: No anterior/posterior cervical lymphadenopathy, supraclavicular/infraclavicular lymphadenopathy, axilla/epitrochlear/inguinal lymphadenopathy. Chest: Symmetric rise and fall with respirations. Non-tender to palpation. Heart: RRR, S1 and S2. No S3 or S4 summation gallop. No tripartite friction rub. No murmur. Lungs: Clear to auscultation and percussion. No audible expiratory wheeze, egophony, pectoriloquy, increase in tactile fremitus, or flatness/dullness to percussion at the bases. Abd: Soft, non-tender, non-distended. Bowel sounds auscultated in all 4 quadrants. No rebound, guarding, Oro's sign, or organomegaly. Ext: No clubbing, cyanosis, or edema. 2+ pedal pulses bilaterally. Skin: No decubitus ulcer or enanthem or exanthem. Neuro: Alert and oriented in regards to person, place, time, and situation. No tremors, tics, or myoclonus. DTR+. 5/5 motor strength in all 4 extremities, both proximally and distally. Urology: No dixon catheter. No diaper. No urethral discharge. Discharge Plan Discharge Items Patient Disposition: Drug & Alcohol Rehab Reason For Visit: SVT, HYPOMAG Discharge Diagnosis: SVT // Hypomagnesemia // Asymptomatic left posterior lobe loculated effusion Condition on Discharge: Fair Activity: Per Instructions section Lifting: Gradually increase as tolerated Bathing: No limitations Exercise/Sports: Gradually increase as tolerated Weightbearing: Full weightbearing Non-emergency contact: Primary Care Provider Call non-emergency contact if: you have any medication questions and your symptoms worsen Follow-up/Referrals: Yemi Garcia Jr, [Primary Care Provider] - Diet: Heart Healthy, Low Fat and Low Sodium (2gm) Fluids: 2000ml (8 cups) Addtl Attending Provider Instructions: You were admitted to for SVT and a left lower lobe loculated pleural effusion. Medical intervention provided by the emergency department and EMS prior to arrival resulted in sustained resolution of your SVT. After discussion with Dr. Pillai of [facility] physician group cardiology, it is recommended that we increase your metoprolol as primary management and continue with magnesium and potassium supplementation to reduce risk of recurrent episodes. At this time, it is of our general opinion that you are unable to tolerate a more permanent solution such as an ablation at this time though may be an option down the line as you continue to recover from your recent hospitalization. It was noted on your initial presenting imaging that you have a left lower lobe loculated pleural effusion; after discussion with our on-call mailroom personnel who reviewed your imaging, based on the size, location, and lack of associated symptoms with respect to this finding, there is no recommendation for pursuing a thoracentesis or chest tube at this time. There is no need for serial imaging follow-up unless you develop symptoms that may be associated with this finding such as persistent hypoxia, pleuritic chest pain. Thank you for choosing [facility] as your healthcare provider. IMPRESSION: 1. Trace free pelvic fluid. 2. Indeterminate bilateral renal lesions, largest in the left kidney measuring 3.1 cm. Further imaging workup with renal ultrasound correlation and possibly renal mass protocol CT or MRI. Pending Studies at Discharge: No Stand-Alone Forms: My [facility] Skilled Items Patient informed of condition?: Yes DNR: No Discharge Level of Care: Acute rehab Communicable Disease: No Discharge Prognosis: Improving Lines: None Urinary Catheter: No Medications and DC Order Prescriptions: New metoprolol succinate 25 mg Tablet Extended Release 24 Hr 75 mg PO DAILY 30 Days Qty: 90 0RF magnesium 250 mg tablet 250 mg PO BID 30 Days Qty: 60 0RF metronidazole 500 mg Tablet 500 mg PO Q8H Qty: 90 0RF Continued ondansetron 4 mg tablet,disintegrating 4 mg PO Q6H PRN (Reason: NAUSEA/VOMITING) docusate sodium 100 mg capsule 100 mg PO Q12H PRN (Reason: Constipation) bisacodyl 10 mg suppository 10 mg TN DAILY PRN (Reason: Constipation) Fleet Enema 19-7 gram/118 mL enema 133 ml TN DAILY PRN (Reason: Constipation) sennosides [Senokot] 8.6 mg tablet 8.6 mg PO QDL PRN (Reason: Constipation) polyethylene glycol 3350 [Miralax] 17 gram/dose powder 17 g PO QDL PRN (Reason: Constipation) acetaminophen 500 mg tablet 500 mg PO Q4H PRN (Reason: TEMP =>100.5) thiamine HCl (vitamin B1) 100 mg tablet 100 mg PO DAILY lisinopril 2.5 mg tablet 2.5 mg PO DAILY olanzapine 5 mg Tablet 5 mg PO QAM Qty: 30 0RF olanzapine 10 mg Tablet 10 mg PO HS Qty: 30 0RF melatonin 3 mg Tablet 3 mg PO HS Qty: 30 0RF spironolactone 25 mg Tablet 25 mg PO QAM 30 Days Qty: 30 0RF folic acid 1 mg Tablet 1 mg PO DAILY Qty: 30 0RF multivitamin with folic acid [Daily-Meseret (with folic acid)] 400 mcg Tablet 1 tab PO QAM Qty: 30 0RF Eliquis 5 mg Tablet 5 mg PO BID 30 Days Qty: 60 0RF acetaminophen [Tylenol] 325 mg Tablet 650 mg PO Q4H PRN (Reason: Pain (Scale Score 1-3)) gabapentin 800 mg Tablet 800 mg PO TID Discontinued metoprolol succinate 50 mg tablet extended release 24 hr 50 mg PO DAILY Discharge Orders: Discharge Order (Routine); Ordered 04/18/25 Ordered By: Lavelle Denny Admission Data Admit Date/Time: 04/11/25 23:43 Attending Provider: Lavelle Denny Admit Provider: Dung Mendieta Primary Care Provider: Yemi Garcia Jr Other Providers: Dung Mendieta; Stefan Marvin Hospital Stay Data Consultations 04/11/25 23:12 ED Decision to Admit Stat 04/14/25 09:41 Consult Pulmonology Routine Diagnostic Imagining Performed 04/11/25 20:49 CT abd pelvis IV con only Stat CT angio chest PE protocol Stat 04/16/25 07:04 US point of care ultrasound Urgent Pending Results Patient Have Any Pending Studies at Discharge: No Discharge Instructions Given to Patient (Per Discharging Provider) You were admitted to for SVT and a left lower lobe loculated pleural effusion. Medical intervention provided by the emergency department and EMS prior to arrival resulted in sustained resolution of your SVT. After discussion with Dr. Pillai of [facility] physician group cardiology, it is recommended that we increase your metoprolol as primary management and continue with magnesium and potassium supplementation to reduce risk of recurrent episodes. At this time, it is of our general opinion that you are unable to tolerate a more permanent solution such as an ablation at this time though may be an option down the line as you continue to recover from your recent hospitalization. It was noted on your initial presenting imaging that you have a left lower lobe loculated pleural effusion; after discussion with our on-call mailroom personnel who reviewed your imaging, based on the size, location, and lack of associated symptoms with respect to this finding, there is no recommendation for pursuing a thoracentesis or chest tube at this time. There is no need for serial imaging follow-up unless you develop symptoms that may be associated with this finding such as persistent hypoxia, pleuritic chest pain. Thank you for choosing [facility] as your healthcare provider. IMPRESSION: 1. Trace free pelvic fluid. 2. Indeterminate bilateral renal lesions, largest in the left kidney measuring 3.1 cm. Further imaging workup with renal ultrasound correlation and possibly renal mass protocol CT or MRI. Total Time Total Time Spent Total Time Spent (In Minutes): 35 minutes. Of this time period, 19 minutes were spent in coordinating patient's discharge. Coding Level of Care Code 42064 INP/OBS DISCH >30 MIN Diagnoses SVT (supraventricular tachycardia) I47.10 Loculated pleural effusion J90 Arm DVT (deep venous thromboembolism), acute I82.629 HFrEF (heart failure with reduced ejection fraction) I50.20 Severe alcohol use disorder, in early remission F10.21
== END 2025-04-18 16:09 | disposition alcohol treatment (31) | DRG 308 ==
LOC: ED 18:19 → EDINP 23:43 → SUATTDRO 23:43 → 4W 04-12 02:12